=== PATIENT | male | born 1955 | race Caucasian/White ===

== ENCOUNTER 2023-04-07 13:59 | Inpatient (IN) | payer MEDICARE, BC, SELFPAY ==
--- NOTE | ~2023-04-07 | MR_ITS ---
EXAMINATION: MR brain/brain stem wo/w con DATE: 04/08/2023 11:48 INDICATION: Cerebral vascular accident. TECHNIQUE: Magnetic resonance imaging (MRI) of the brain and brainstem was performed without and with 15 mL MultiHance intravenous contrast. COMPARISON: Head CT 04/07/2023 FINDINGS: There is an acute infarct in right occipital lobe. Cortical decreased T2*weighted signal in tensity in the same distribution may be calcification or microhemorrhage. There are scattered areas o f nonspecific increased T2-weighted signal intensity in the cerebral white matter, which is within no rmal limits for the patient's age. There is no abnormal mass. The ventricles are normal in size. Ther e is mild mucosal thickening in the ethmoid sinuses. The orbits are normal. The mastoid air cells are normal. IMPRESSION: 1. Acute infarct in right occipital lobe. Abnormal cortical signal in this distribution may be calcif ication or microhemorrhage. Reviewed, dictated and finalized at location A. IMPRESSION: 1. Acute infarct in right occipital lobe. Abnormal cortical signal in this dist ribution may be calcification or microhemorrhage.
--- NOTE | ~2023-04-07 | CT_ITS ---
EXAMINATION: CTA brain carotid DATE: 04/07/2023 15:41 INDICATION: Ataxia. Left hemianopia. TECHNIQUE: Computed tomographic angiography (CTA) of the head was performed without and with 100 mL O mnipaque-350 intravenous contrast. CTA of the neck was performed with intravenous contrast. Automated exposure control and iterative reconstruction technique were employed. The dose-length product was 1 951.77 mGy-cm. Maximum intensity projection and volume rendered 3D-reconstructions were created by honey larson technologist on a separate workstation. COMPARISON: None. FINDINGS: HEAD CTA: There is an infarct in right occipital lobe. There is no intracranial hemorrhage or abnorma l mass lesion. The ventricles are normal in size. There is mild mucosal thickening in the ethmoid sin uses. The mastoid air cells are normal. The orbits are normal. Right vertebral artery is dominant. Th ere is no significant stenosis of basilar artery or the posterior cerebral arteries. There is no sign ificant stenosis of the intracranial internal carotid arteries or anterior or middle cerebral arterie s. Anterior communicating artery is normal. The posterior communicating arteries are normal. There is no aneurysm. NECK CTA: There are no pathologically enlarged lymph nodes. There is moderate stenosis of origin of l eft vertebral artery. There is plaque in the proximal internal carotid arteries. There is 0% stenosis of the proximal right internal carotid artery relative to normal distal artery lumen diameter (NASCE T criteria). There is 0% stenosis of the proximal left internal carotid artery relative to normal dis silver artery lumen diameter. There is severe cervical spondylosis. IMPRESSION: 1. Acute infarct in the right occipital lobe. 2. No aneurysm or significant intracranial arterial stenosis. 3. 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 4. 0% stenosis of the proximal internal carotid arteries relative to normal distal artery lumen diame ters (NASCET criteria). Reviewed, dictated and finalized at location A. IMPRESSION: 1. Acute infarct in the right occipital lobe. 2. No aneurysm or significant intracranial arterial stenosis. 3. 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 4. 0% stenosis of the proximal internal carotid arteries relative to normal dis silver artery lumen diameters (NASCET criteria).
[2023-04-07 14:01] VITALS: BP 141/113; PULSE 77; RESP 20; TEMP 36.6; O2SAT 97
[2023-04-07 15:13] VITALS: BP 157/92; PULSE 97; RESP 18; O2SAT 99
--- NOTE | 2023-04-07 15:13 | ECG_ITS ---
Measurements Intervals [place] Rate: 70 P: 31 VA: 215 QRS: 107 QRSD: 147 T: 41 QT: 458 QTc: 495 Interpretive Statements SINUS RHYTHM WITH FIRST DEGREE AV BLOCK RIGHT AXIS DEVIATION RIGHT BUNDLE BRANCH BLOCK BASELINE ARTIFACT- I, II, III, AVR, AVL, AVF, V1-V6 ABNORMAL ECG NO PREVIOUS ECG AVAILABLE FOR COMPARISON Electronically Signed On 04-07-2023 16:33:54 CDT by Rolan Strange D.O.
--- NOTE | 2023-04-07 15:15 | ED.NEUROSD ---
HPI - Neuro Symptoms/Deficit General Chief Complaint: Neuro Symptoms/Deficit Stated Complaint: vision problems started yesterday/off balance Time Seen by Provider: 04/07/23 14:54 History of Present Illness HPI Narrative: Patient is a 67-year-old male with a history of diabetes presenting with vision changes. Patient states that sometime around 5:30 PM last night he noticed that he could not see out of his periphery with his left eye. States that he noticed it while driving. He went to bed hoping that it would improve but it persisted today. He denies any other vision changes. No headache, numbness, weakness, speech changes, temporal pain, fevers, neck pain. Patient's is at bedside and states that he has seemed off balance for the last several months. States that he has had several falls. He denies further complaints at this time. Related Data Home Medications Medication Instructions Recorded Confirmed ascorbic acid (vitamin C) 1,000 mg 1 g PO DAILY 04/07/23 04/14/23 tablet cholecalciferol (vitamin D3) 50 2,000 unit PO DAILY 04/07/23 04/14/23 mcg (2,000 unit) tablet (Vitamin D3) escitalopram oxalate 20 mg tablet 20 mg PO DAILY 04/07/23 04/14/23 glipizide 5 mg tablet, extended 5 mg PO BID 04/07/23 04/14/23 release 24 hr oxmssezrshl-ehmkaqkxh-fdr C-Mn 500 1 cap PO DAILY 04/07/23 04/14/23 mg-400 mg capsule (Glucosamine Chondroitin Maximum Strength) metolazone 5 mg tablet 5 mg PO DAILY 04/07/23 04/14/23 metoprolol succinate 50 mg 50 mg PO DAILY 04/07/23 04/14/23 tablet,extended release 24 hr multivit with minerals-iron 18 1 tablet PO DAILY 04/07/23 04/14/23 mg-folic ac 400 mcg-vit K 25 mcg tablet (Adults Multivitamin) potassium chloride 20 mEq 20 meq PO DAILY 04/07/23 04/14/23 tablet,extended release sitagliptin phosphate 100 mg 100 mg PO DAILY 04/07/23 04/14/23 tablet (Januvia) dupilumab 300 mg/2 mL subcutaneous 300 mg subcut [id number] 04/08/23 04/15/23 syringe ([employer]) Allergies Allergy/AdvReac Type Severity Reaction Status Date / Time No Known Allergies Allergy Verified 04/07/23 18:06 Review of Systems Review of Systems: All systems reviewed & are unremarkable except as noted in HPI and below PMFSH Past Medical History Medical History Acute stroke due to ischemia Depression DM2 (diabetes mellitus, type 2) History of pneumonia History of pneumothorax Hyperlipidemia Hypertension Surgical History Surgical History H/O elbow surgery History of chest tube placement Family History Family History Other Hypertension Social History Social History (Updated 04/15/23 @ 06:56 by JIMENA Banuelos) Social History: The patient is and lives with his . He has 2 children. he is a former smoker. 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 He is a former smoker. His Albina is the durable power attorney recruiter for healthcare Code status full code Smoking packs per day: 1 Smoking cigarettes per day: 20.0 Smoking status: Former smoker Tobacco type: cigarettes and e-cigarettes/vaping Smoking end date: 09/20/09 Alcohol intake: current Substance use: never Substance use type: does not use Lack of Transportation: No Lack of Food: Never True Current Housing: I Have Housing Concerned About Future Housing: No Difficulty Paying Gas/Electric Bills: No Difficulty Paying for Meds: No Currently Unemployed: No Education: High School Diploma/GED Difficulty w/ Childcare or Family Care: No Spiritual care concerns: No Exam Narrative: GENERAL: Well-appearing, well-nourished, and in no acute distress. Pleasant and cooperative HEAD: Normocephalic, atraumatic. EYES: PERRLA and EOMI. ENT: Nares clear, no rhinorrhea or epistaxis. Mucous membranes moist. NECK: Suppl
[2023-04-07 15:28] LABS: Glucose Point of Care 200 mg/dl (65-105)
[2023-04-07 15:33] LABS: Estimated CRCL calculation 58 ml/min; Estimated Glomerular Filt Rate 51
[2023-04-07 15:48] LABS: Basophils Absolute Auto 0.1 K/mm3 (0.0-0.1); Basophils Percent Auto 0.9 % (0.2-1.2); Eosinophils Absolute Auto 0.4 K/mm3 (0-0.3); Eosinophils Percent Auto 3.7 % (0-4.4); Hemoglobin 13.8 g/dL (14.0-18.0); Immature Granulocyte Absolute 0.05 K/mm3 (0.00-0.031); Immature Granulocyte Percent A 0.5 % (0-0.5); Lymphocytes Absolute Auto 1.93 K/mm3 (0.9-3.2); Lymphocytes Percent Auto 18.6 % (18.3-44.2); Mean Corpuscular HGB Conc 33.7 g/dl (32-36); Mean Corpuscular Hemoglobin 30.5 pg (26-34); Mean Corpuscular Volume 90.7 fl (80-100); Mean Platelet Volume 10.6 fl (7.4-10.4); Monocytes Absolute Auto 0.7 K/mm3 (0.1-0.6); Monocytes Percent Auto 6.9 % (2.6-8.5); Neutrophils Absolute Auto 7.2 K/mm3 (1.3-6.7); Neutrophils Percent Auto 69.4 % (45.5-73.1); Platelet Count Result 280 k/mm3 (150-375); Red Blood Count 4.52 M/mm3 (4.6-6.20); Red Cell Distribution Width 13.7 % (11.5-14.5); White Blood Count 10.4 K/mm3 (4.5-10.0)
[2023-04-07 15:58] LABS: Partial Thromboplastin Time 31.4 SECONDS (22.3-36.8); Prothrombin Time 13.5 Seconds (11.1-14.7)
[2023-04-07 16:01] LABS: Alanine Aminotransferase 22 U/L (6-50); Alkaline Phosphatase 82 U/L (38-126); Anion Gap 5 mmol/L (8-16); Aspartate Amino Transferase 27 U/L (17-59); Bilirubin,Total 0.7 mg/dL (0.2-1.3); Blood Urea Nitrogen 25 mg/dL (9-20); Calcium 8.6 mg/dL (8.4-10.2); Carbon Dioxide 35 mmol/L (22-30); Chloride 96 mmol/L (98-107); Estimated CRCL calculation 67 ml/min; Estimated Glomerular Filt Rate 60; Glucose 186 mg/dL (65-110); Potassium 3.6 mmol/L (3.4-5.0); Sodium 136 mmol/L (137-145)
[2023-04-07] MEDS: SODIUM CHLORIDE 0.9% IV 1,000 ML 999 ML IV CONT (16:10)
--- NOTE | 2023-04-07 17:44 | ADMGEN ---
This patient, Constantino Adam, was admitted to Medical Room 241-01. Patient/family oriented to hospital policies and general routines including ID bracelet, bed and alarms, visiting hours, pain management, procedures, bathroom and other care routines, personal items, smoking policy, room service/diet, and visiting hours. Information on how to activate the Rapid Response Team has been discussed. Patient/Family are encouraged to report perceived risks to care and to ask questions if they do not understand what they are told or what they should do.
[2023-04-07 17:50] VITALS: BP 142/78; PULSE 75; RESP 16; TEMP 36.3; O2SAT 99
[2023-04-07 19:55] VITALS: BP 156/64; PULSE 74; RESP 16; TEMP 36.8; O2SAT 98
[2023-04-07 19:58] VITALS: BMI 38.2
[2023-04-07 20:00] VITALS: PULSE 77
--- NOTE | 2023-04-07 21:13 | PM.IMHP ---
H&P: HPI History of Present Illness Date/Time: 04/07/23 21:13 Chief Complaint: This is a 67-year-old male patient who came to the emergency room with complaints of visual problems. The patient does have a history of diabetes. Patient stated that he was out eating dinner with his last night around 530 and he noticed that he had some blurred vision to the periphery on the left eye. The patient stated that he has not had an eye appointment in 2 years. The patient went home and went to bed last night thinking that his vision was improved today. However it persisted. The patient continue to complain of right occipital headache. The patient denies any difficulty swallowing or any problems with ambulating. He has no focal weakness. Patient stated that he is been off balance for the last several months. He denies having any falls. No further complaints except for the headache to the right occipital area. His white count was 10.4. H&H is 13.8 and 41.0. Sodium is 136. Chloride 96. Anion gap is 5 BUN 25 creatinine 1.2. His blood sugar was 186. Head CTA was read as the following. Acute infarct in the right occipital lobe. 2. No aneurysm or significant intracranial arterial stenosis. 3. 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 4. 0% stenosis of the proximal internal carotid arteries relative to normal distal artery lumen diameters (NASCET criteria). The patient was given IV fluids in the emergency room. Neurology has been consulted. The patient is being admitted to observation status on the date of service 04/06/2023. Review of Systems Review of Systems: All systems reviewed & are unremarkable except as noted in HPI and below Constitutional: Constitutional: Reports as per HPI and Reports no additional constitutional complaints Eyes: Eyes: Reports as per HPI and Reports no additional eye complaints ENT: Reports system reviewed and no additional complaints, except as documented and Reports Normal hearing present Cardiovascular: Cardiovascular: Reports no additional cardiovascular complaints Respiratory: Respiratory: Reports no additional respiratory complaints and Reports no additional respiratory complaints Gastrointestinal: Gastrointestinal: Reports as per HPI and Reports no additional gastrointestinal complaints Musculoskeletal: Musculoskeletal: Reports no additional musculoskeletal complaints Integumentary/Breasts: Skin/Breast: Reports system reviewed and no additional complaints, except as docu and Reports as per HPI Neurologic: Reports system reviewed and no additional complaints, except as documented, Reports as per HPI and Reports Normal hearing present Psychiatric: Psychiatric: Reports no additional psychiatric complaints and Reports as per HPI Endocrine: Endocrine: Reports no additional endocrine complaints Hematologic/Lymphatic: Hematologic/Lymphatic: Reports no additional hematologic/lymphatic complaints Allergic/Immunologic: Allergic/Immunologic: Reports no additional allergic/immunologic complaints FOR[facility]LY [facility], [facility] Past Medical History Medical History (Updated 04/07/23 @ 23:51 by Carola Mcbride NP) Depression DM2 (diabetes mellitus, type 2) History of pneumonia History of pneumothorax Hyperlipidemia Hypertension Surgical History Surgical History (Updated 04/07/23 @ 23:41 by Carola Mcbride NP) H/O elbow surgery History of chest tube placement Family History Family History (Updated 04/07/23 @ 23:41 by Carola Mcbride NP) Other Hypertension Social History Social History (Updated 04/07/23 @ 23:43 by aCrola Mcbride NP) Social History: The patient is and lives with his . He has 2 children. he is a former smoker. 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 He is a former smoker. His is the durable power divorce attorney for healthcare Code status full code Smoking packs per day: 1 Smoking cigarettes per day: 20.0 Smoking status: Former smoker Tobacco typ
[2023-04-07] MEDS: ASPIRIN 81 MG ENTERIC TABLET PO (22:38)
[2023-04-07] MEDS: ACETAMINOPHEN 325 MG TABLET 650 MG PO (22:38)
[2023-04-08] VITALS (11 sets, daily range): BP systolic 144–154; BP diastolic 68–81; PULSE 67–74; RESP 16–20; TEMP 36.4–36.8; O2SAT 96–98
--- NOTE | 2023-04-08 | ECHO_ITS ---
Patient Info Name: Constantino Adam Age: 67 years : 1955 Gender: Male Ht: 69 in Wt: 259 lbs BSA: 2.44 m2 HR: 69 bpm BP: 145 / 68 mmHg Heart Rhythm: Sinus Rhythm Technical Quality: Fair Exam Date: 04/08/2023 9:12 AM Exam Location: [facility] Pulmonary Patient Status: Inpatient Admit Date: 04/07/2023 Staff Ordering Physician: Carola Mcbride NP Solid Waste Analyst: Andreia Wilkerson RDCS Attending Provider: Luis Castillo MD Referring Physician: Reed LYONS; Exam Type: CA echo dop bubble study w con Study Info Indications - cva Complete two-dimentional, color flow and Doppler transthoracic echocardiogram is performed with agitated saline and with contrast to opacify the left ventricle and to improve the delineation of the left ventricle endocardial borders. Contrast/Agitated Saline Contrast/Ag. Saline: Definity Amount: 3.00 ml Administered By: Andreia Wilkerson RDCS Existing IV Access: Yes IV Access Condition: patent with no signs of infiltration Contrast/Ag. Saline: Agitated Saline Amount: 20.00 ml Administered By: Concepcion Carter [facility] Existing IV Access: Yes IV Access Condition: patent with no signs of infiltration Summary 1. Left ventricular chamber dimension is normal. 2. Left ventricular systolic function is normal, estimated at 60-65%. 3. There is moderate asymmetric septal increased left ventricular wall thickness. 4. The left ventricular diastolic function is grade II diastolic dysfunction. 5. Left atrial chamber dimension is moderately enlarged. 6. The mitral valve annulus is moderately calcified. 7. The mitral valve has thickened leaflets. 8. There is mild tricuspid valve regurgitation. 9. Intact interatrial septum visualized by color flow and agitated saline imaging. Left Ventricle Left ventricular chamber dimension is normal. Left ventricular systolic function is normal, estimated at 60-65%. There is moderate asymmetric septal increased left ventricular wall thickness. The left ventricular diastolic function is grade II diastolic dysfunction. Right Ventricle Right ventricular chamber dimension is normal. Right ventricular systolic function is normal. Left Atria Left atrial chamber dimension is moderately enlarged. Right Atria Right atrial chamber dimension is normal. Atrial Septum Intact interatrial septum visualized by color flow and agitated saline imaging. Aortic Valve The aortic valve is trileaflet. There is mild aortic valve sclerosis. There is no aortic valve stenosis. There is trace aortic valve regurgitation. Pulmonic Valve The pulmonic valve is normal. There is no pulmonic valve stenosis. There is trace pulmonic regurgitation. Mitral Valve The mitral valve has thickened leaflets. There is no mitral valve stenosis. There is trace mitral valve regurgitation. The mitral valve annulus is moderately calcified. Tricuspid Valve The tricuspid valve leaflets are normal. There is no significant tricuspid valve stenosis. There is mild tricuspid valve regurgitation. No pulmonary hypertension, estimated pulmonary arterial systolic pressure is 22 mmHg. Pericardium/Pleural The pericardium appears normal. There is trivial pericardial effusion. Inferior Vena Cava Normal inferior vena cava with >50% collapse upon inspiration consistent with normal right atrial pressure, 10 mmHg. Aorta The aortic root size at the sinus of Valsalva is normal. There is mild aortic atherosclerosis. Left [place]
[2023-04-08 01:28] LABS: Glucose Point of Care 242 mg/dl (65-105)
[2023-04-08 05:37] LABS: Basophils Absolute Auto 0.1 K/mm3 (0.0-0.1); Basophils Percent Auto 0.7 % (0.2-1.2); Eosinophils Absolute Auto 0.3 K/mm3 (0-0.3); Eosinophils Percent Auto 2.4 % (0-4.4); Hematocrit 39.7 % (42.0-52.0); Hemoglobin 13.1 g/dL (14.0-18.0); Immature Granulocyte Absolute 0.07 K/mm3 (0.00-0.031); Immature Granulocyte Percent A 0.6 % (0-0.5); Lymphocytes Percent Auto 20.6 % (18.3-44.2); Mean Corpuscular Hemoglobin 30.3 pg (26-34); Mean Corpuscular Volume 91.7 fl (80-100); Mean Platelet Volume 10.7 fl (7.4-10.4); Monocytes Absolute Auto 0.9 K/mm3 (0.1-0.6); Neutrophils Absolute Auto 7.9 K/mm3 (1.3-6.7); Neutrophils Percent Auto 67.7 % (45.5-73.1); Platelet Count Result 268 k/mm3 (150-375); Red Blood Count 4.33 M/mm3 (4.6-6.20); Red Cell Distribution Width 13.4 % (11.5-14.5); White Blood Count 11.7 K/mm3 (4.5-10.0)
[2023-04-08 06:02] LABS: Alanine Aminotransferase 20 U/L (6-50); Albumin Level 3.7 g/dL (3.5-5.1); Alkaline Phosphatase 78 U/L (38-126); Anion Gap 5 mmol/L (8-16); Aspartate Amino Transferase 22 U/L (17-59); Bilirubin,Total 0.5 mg/dL (0.2-1.3); Blood Urea Nitrogen 22 mg/dL (9-20); Calcium 8.4 mg/dL (8.4-10.2); Carbon Dioxide 36 mmol/L (22-30); Chloride 94 mmol/L (98-107); Estimated CRCL calculation 58 ml/min; Estimated Glomerular Filt Rate 51; Glucose 221 mg/dL (65-110); Magnesium 1.8 mg/dL (1.6-2.3); Potassium 3.6 mmol/L (3.4-5.0); Sodium 135 mmol/L (137-145)
[2023-04-08] MEDS: ACETAMINOPHEN 325 MG TABLET 650 MG PO (06:11)
[2023-04-08 07:44] LABS: Free T4 Free Thyroxine Reflex 0.98 ng/dL (0.78-2.19)
[2023-04-08 08:41] LABS: Glucose Point of Care 240 mg/dl (65-105)
[2023-04-08] MEDS: glipiZIDE XL 5 MG TABCR PO ×2 (09:05→16:53)
[2023-04-08] MEDS: ASCORBIC ACID 500 MG TABLET 1000 MG PO (09:05)
[2023-04-08] MEDS: MULTIVITAMINS /C LUTEIN (CENTRUM SILVER) TABLET *BKC 1 TAB PO (09:05)
[2023-04-08] MEDS: ASPIRIN 81 MG ENTERIC TABLET PO (09:06)
[2023-04-08] MEDS: CHOLECALCIFEROL 1,000 UNITS TABLET 2000 UNITS PO (09:06)
[2023-04-08] MEDS: ESCITALOPRAM OXALATE 10 MG TABLET 20 MG PO (09:06)
[2023-04-08] MEDS: metOLazone 5 MG TABLET PO (09:06)
[2023-04-08] MEDS: METOPROLOL SUCCINATE EXT REL 50 MG TABCR PO (09:07)
[2023-04-08] MEDS: ATORVASTATIN 10 MG TABLET PO (09:07)
[2023-04-08] MEDS: POTASSIUM CHLORIDE 20 MEQ ER TABLET PO (09:08)
[2023-04-08] MEDS: INSULIN ASPART (*BKC) 100 UNITS/ML SUB-Q ×3 (09:09→21:27)
[2023-04-08] MEDS: PERFLUTREN LIPID MICROSPHERES 1.5 ML VIAL DILUTED TO 10 ML TOTAL VOLUME IV PUSH (09:45)
--- NOTE | 2023-04-08 10:43 | WPDNEURCNPN ---
Assessment and Plan Assessment and plan (1) CVA (cerebral vascular accident): Qualifiers: CVA mechanism: occlusion Precerebral and cerebral artery: posterior cerebral artery Laterality of affected vessel: bilateral Qualified Code(s): I63.533 - Cerebral infarction due to unspecified occlusion or stenosis of bilateral posterior cerebral arteries Code(s): I63.9 - Cerebral infarction, unspecified Status: Acute (2) DM2 (diabetes mellitus, type 2): Qualifiers: Diabetes mellitus complication status: with neurologic complications Code(s): E11.9 - Type 2 diabetes mellitus without complications Status: Acute (3) Hypertension: Code(s): I10 - Essential (primary) hypertension Status: Acute (4) Hyperlipidemia: Code(s): E78.5 - Hyperlipidemia, unspecified Status: Acute Plan 1. Right occipital infarct with left homonymous hemianopia documented by the CTA of the head and neck, will need the MRI of the brain to document any other incidental strokes O he gets discharged. 2. Diabetic neuropathy with mild gait dysfunction 3. Diabetes mellitus 4. Obesity plan increase the atorvastatin, obtain the MRI of the brain, wait for the results of the echocardiogram before further instruction. Consult date: 04/08/23 HPI: Constantino Adam is a 67 year old male admitted to the hospital through the emergency room for the complaints of inability to see out of the left eye and first-time noted when he was driving gave no history of headaches weakness of numbness of 1 side or other side no history of speech difficulties or any neck pain though he found himself to be somewhat of balance. He is not allergic to any medication initial evaluation in the emergency room documented left-sided hemianopia, vital signs were normal except blood pressure 157/92, CTA of the brain in the Emergency Room confirm the right occipital infarct but no other abnormalities. Routine blood studies documented a blood sugar of 186 and electrolytes fairly normal also rest of the blood studies were normal but also documented to have moderate stenosis of the origin of the left vertebral artery, he does have ongoing history of depression and as mentioned before type 2 diabetes mellitus, but no history of alcohol consumption though is a former smoker and his medications include atorvastatin 10 mg daily he cycle of prime 20 mg daily glipizide 5 mg twice a day metoprolol 50 mg daily C tag Taras 100 mg daily Review of Systems Review of Systems: All systems reviewed & are unremarkable except as noted in HPI and below PMFSH Past Medical History Medical History (Updated 04/08/23 @ 10:56 by Alvarado Garcia MD) Depression DM2 (diabetes mellitus, type 2) History of pneumonia History of pneumothorax Hyperlipidemia Hypertension Surgical History Surgical History (Updated 04/07/23 @ 23:41 by Carola Mcbride NP) H/O elbow surgery History of chest tube placement Family History Family History (Updated 04/07/23 @ 23:41 by Carola Mcbride NP) Other Hypertension Social History Social History (Updated 04/07/23 @ 23:43 by Carola Mcbride NP) Social History: The patient is and lives with his . He has 2 children. he is a former smoker. 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 He is a former smoker. His is the durable power commonwealth attorney for healthcare Code status full code Smoking packs per day: 1 Smoking cigarettes per day: 20.0 Smoking status: Former smoker Tobacco type: cigarettes and e-cigarettes/vaping Smoking end date: 09/20/09 Alcohol intake: never Substance use: never Lack of Transportation: No Lack of Food: Never True Current Housing: I Have Housing Concerned About Future Housing: No Difficulty Paying Gas/Electric Bills: No Difficulty Paying for Meds: No Currently Unemployed: No Education: Trade/Vocational Certificate Difficulty w/ Childcare or F
[2023-04-08 12:43] LABS: Glucose Point of Care 299 mg/dl (65-105)
--- NOTE | 2023-04-08 13:45 | PHAR ---
HOME MED VERIFIED BY PHARMACY DUPIXENT (DUPILUMAB) 300MG/2ML SYRINGE - 1 SYRINGE
--- NOTE | 2023-04-08 14:07 | WPDPN ---
Progress Note: A&P Assessment and Plan (1) CVA (cerebral vascular accident): Qualifiers: CVA mechanism: occlusion Precerebral and cerebral artery: posterior cerebral artery Laterality of affected vessel: bilateral Qualified Code(s): I63.533 - Cerebral infarction due to unspecified occlusion or stenosis of bilateral posterior cerebral arteries Code(s): I63.9 - Cerebral infarction, unspecified Status: Acute Assessment and Plan: 04/08/2023 interval history: patient continue to c/o visual problem and MRI of the brain does show acute infarct in right occipital lobe. Abnormal cortical signal in this distribution may be calcification or microhemorrhage. patient is on Aspirin and will increase his lipitor to 40mg q.day. cardiac echo is pending, patient be seen by Neurology and further recommendation to follow, will have a PT OT evaluate the patient, patient had uncontrolled diabetes will have buggy loader talk to the patient and further recommendation to follow. (2) Depression: Code(s): F32.A - Depression, unspecified Status: Acute Assessment and Plan: Will continue home regimen and monitor (3) DM2 (diabetes mellitus, type 2): Qualifiers: Diabetes mellitus complication status: with neurologic complications Code(s): E11.9 - Type 2 diabetes mellitus without complications Status: Acute Assessment and Plan: Patient with uncontrolled diabetes with hemoglobin A1c of 11 will have a buggy loader discussed with the patient (4) Hypertension: Code(s): I10 - Essential (primary) hypertension Status: Acute Assessment and Plan: Will continue home regimen and monitor (5) Hyperlipidemia: Code(s): E78.5 - Hyperlipidemia, unspecified Status: Acute Plan Will increase patient Lipitor from 10 mg q.day to 40 mg q.day. Subjective Date/time seen: 04/08/23 14:07 Interval history: This is a 67-year-old male patient who came to the emergency room with complaints of visual problems.? The patient does have a history of diabetes.? Patient stated that he was out eating dinner with his last night around 530 and he noticed that he had some blurred vision to the periphery on the left eye.? The patient stated that he has not had an eye appointment in 2 years.? The patient went home and went to bed last night thinking that his vision was improved today.? However it persisted.? The patient continue to complain of right occipital headache.? The patient denies any difficulty swallowing or any problems with ambulating.? He has no focal weakness.? Patient stated that he is been off balance for the last several months.? He denies having any falls.? No further complaints except for the headache to the right occipital area.? His white count was 10.4.? H&H is 13.8 and 41.0.? Sodium is 136.? Chloride 96.? Anion gap is 5 BUN 25 creatinine 1.2.? His blood sugar was 186.? Head CTA was read as the following. Acute infarct in the right occipital lobe. 2. No aneurysm or significant intracranial arterial stenosis. 3. 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 4. 0% stenosis of the proximal internal carotid arteries relative to normal distal artery lumen diameters (NASCET criteria). The patient was given IV fluids in the emergency room.? Neurology has been consulted.?? 04/08/2023 interval history: patient continue to c/o visual problem and MRI of the brain does show acute infarct in right occipital lobe. Abnormal cortical signal in this distribution may be calcification or microhemorrhage. patient is on Aspirin and will increase his lipitor to 40mg q.day. cardiac echo is pending, patient be seen by Neurology and further recommendation to follow, will have a PT OT evaluate the patient, patient had uncontrolled diabetes will have buggy loader talk to the patient and further recommendation to follow. Review of Systems Review of Systems: All systems reviewed
[2023-04-08] MEDS: DOCUSATE SODIUM 100 MG CAPSULE PO (17:20)
[2023-04-08] MEDS: polyethylene glycoL 3350 17 GM POWD.PACK PO (17:20)
[2023-04-08 17:32] LABS: Glucose Point of Care 181 mg/dl (65-105)
[2023-04-08 20:38] LABS: Glucose Point of Care 256 mg/dl (65-105)
[2023-04-09] VITALS (9 sets, daily range): BP systolic 140–152; BP diastolic 64–67; PULSE 61–80; RESP 20; TEMP 36.4–36.8; O2SAT 95–97; BMI 38.2
[2023-04-09 00:01] LABS: Total Triiodothyronine (T3) 1.06 NG/ML (0.97-1.69)
[2023-04-09 09:11] LABS: Glucose Point of Care 207 mg/dl (65-105)
[2023-04-09] MEDS: ASCORBIC ACID 500 MG TABLET 1000 MG PO (09:31)
[2023-04-09] MEDS: ASPIRIN 81 MG ENTERIC TABLET PO (09:32)
[2023-04-09] MEDS: ESCITALOPRAM OXALATE 10 MG TABLET 20 MG PO (09:32)
[2023-04-09] MEDS: DOCUSATE SODIUM 100 MG CAPSULE PO ×2 (09:32→22:04)
[2023-04-09] MEDS: CHOLECALCIFEROL 1,000 UNITS TABLET 2000 UNITS PO (09:32)
[2023-04-09] MEDS: glipiZIDE XL 5 MG TABCR PO ×2 (09:33→17:19)
[2023-04-09] MEDS: METOPROLOL SUCCINATE EXT REL 50 MG TABCR PO (09:33)
[2023-04-09] MEDS: metOLazone 5 MG TABLET PO (09:33)
[2023-04-09] MEDS: MULTIVITAMINS /C LUTEIN (CENTRUM SILVER) TABLET *BKC 1 TAB PO (09:34)
[2023-04-09] MEDS: POTASSIUM CHLORIDE 20 MEQ ER TABLET PO (09:34)
[2023-04-09] MEDS: INSULIN ASPART (*BKC) 100 UNITS/ML SUB-Q ×4 (09:35→22:04)
--- NOTE | 2023-04-09 11:51 | WPDNEUROPN ---
Progress Note: A&P Assessment and Plan (1) CVA (cerebral vascular accident): Qualifiers: CVA mechanism: occlusion Precerebral and cerebral artery: posterior cerebral artery Laterality of affected vessel: bilateral Qualified Code(s): I63.533 - Cerebral infarction due to unspecified occlusion or stenosis of bilateral posterior cerebral arteries Code(s): I63.9 - Cerebral infarction, unspecified Status: Acute (2) Hypertension: Code(s): I10 - Essential (primary) hypertension Status: Acute (3) Hyperlipidemia: Code(s): E78.5 - Hyperlipidemia, unspecified Status: Acute Plan considering her significantly abnormal echocardiogram we will continue Plavix 75 mg daily for 3 months in addition her carotid study is borderline as well should follow with the vascular surgeon. Subjective Date/time seen: 04/09/23 11:51 Objective Data Vital Signs Vital Signs: Vital Signs - 24 hr 04/08/23 12:00 04/08/23 14:00 04/08/23 16:00 Temperature 36.8 C Pulse Rate 72 67 68 Respiratory Rate 16 Blood Pressure 144/81 H Pulse Oximetry 97 Oxygen Delivery 04/08/23 19:13 04/08/23 20:00 04/08/23 20:00 Temperature 36.6 C Pulse Rate 71 68 Respiratory Rate 20 Blood Pressure 154/73 H Pulse Oximetry 98 Oxygen Delivery Room Air 04/09/23 00:00 04/09/23 09:33 04/09/23 09:45 Temperature Pulse Rate 80 70 Respiratory Rate Blood Pressure Pulse Oximetry Oxygen Delivery Room Air 04/09/23 10:26 Temperature Pulse Rate Respiratory Rate Blood Pressure Pulse Oximetry 97 Oxygen Delivery Room Air Intake/Output Intake/Output: Intake & Output 04/06/23 04/07/23 04/08/23 04/09/23 23:59 23:59 23:59 23:59 Intake Total 1000 1842 530 Balance 1000 1842 530 Meds/Results Medications: Active Medications Generic Name Dose Route Start Last Admin Trade Name Freq PRN Reason Stop Dose Admin Acetaminophen 650 mg 04/07/23 21:57 04/08/23 06:11 Acetaminophen 325 Mg Tablet PO 650 mg Q4H PRN Administration Headache Ascorbic Acid 1,000 mg 04/08/23 09:00 04/09/23 09:31 Ascorbic Acid 500 Mg Tablet PO 1,000 mg DAILY JERAMY Administration Aspirin 81 mg 04/07/23 22:00 04/09/23 09:32 Aspirin 81 Mg Enteric Tablet PO 81 mg QAM JERAMY Administration Atorvastatin Calcium 40 mg 04/09/23 21:00 Atorvastatin 40 Mg Tablet PO HS [facility] Dextrose 12.5 gm 04/07/23 23:50 Dextrose 50% 25 Gm/50 Ml Syringe IV PUSH PRN PRN Hypoglycemia Protocol Docusate Sodium 100 mg 04/08/23 21:00 04/09/23 09:32 Docusate Sodium 100 Mg Capsule PO 100 mg Q12HR JERAMY Administration Escitalopram Oxalate 20 mg 04/08/23 09:00 04/09/23 09:32 Escitalopram Oxalate 10 Mg Tablet PO 20 mg DAILY JERAMY Administration Glipizide 5 mg 04/08/23 09:00 04/09/23 09:33 Glipizide Xl 5 Mg Tabcr PO 5 mg BID JERAMY Administration Glucagon 1 mg 04/07/23 23:50 Glucagon For Inj 1 Mg Vial IM PRN PRN Hypoglycemia Protocol Glucose 15 gm 04/07/23 23:50 Glucose Oral Gel 15 Gm Of Glucse In 37.5 Gm Tube PO PRN PRN Hypoglycemia Protocol Dextrose 1,000 mls @ 100 mls/hr 04/07/23 23:50 Dextrose 5% 1,000 Ml IVPB PRN PRN Hypoglycemia Protocol Insulin Aspart 2 - 5 units 04/08/23 08:00 04/09/23 09:35 Insulin Aspart (*Bkc) 100 Units/Ml SUB-Q 2 units TIDWM JERAMY Administration Protocol Insulin Aspart 1 - 2 units 04/08/23 21:00 04/08/23 21:27 Insulin Aspart (*Bkc) 100 Units/Ml SUB-Q 1 units HS JERAMY Administration Protocol Metolazone 5 mg 04/08/23 09:00 04/09/23 09:33 Metolazone 5 Mg Tablet PO 5 mg DAILY JERAMY Administration Metoprolol Succinate 50 mg 04/08/23 09:00 04/09/23 09:33 Metoprolol Succinate Ext Rel 50 Mg Tabcr PO 50 mg DAILY JERAMY Administration Multivitamins/Minerals 1 tab 04/08/23 09:00 04/09/23 09:34 Multivita
--- NOTE | 2023-04-09 12:30 | WPDPN ---
Progress Note: A&P Assessment and Plan (1) CVA (cerebral vascular accident): Qualifiers: CVA mechanism: occlusion Precerebral and cerebral artery: posterior cerebral artery Laterality of affected vessel: bilateral Qualified Code(s): I63.533 - Cerebral infarction due to unspecified occlusion or stenosis of bilateral posterior cerebral arteries Code(s): I63.9 - Cerebral infarction, unspecified Status: Acute Assessment and Plan: 04/09/2023 interval history: patient continue to c/o visual problem and MRI of the brain does show acute infarct in right occipital lobe. Abnormal cortical signal in this distribution may be calcification or microhemorrhage. patient is on Aspirin and increased his lipitor to 40mg q.day. cardiac echo showed preserver LV function and grade II diastolic dysfunction, otherwise it normal, patient is seen by Neurology and further recommendation to follow, will have a PT OT evaluate the patient, however patient is unsteady on his feet and unable to stand without help, will benefit going to rehab, patient had uncontrolled diabetes will have rn diabetes educator talk to the patient and further recommendation to follow. (2) Depression: Code(s): F32.A - Depression, unspecified Status: Acute Assessment and Plan: Will continue home regimen and monitor (3) DM2 (diabetes mellitus, type 2): Qualifiers: Diabetes mellitus complication status: with neurologic complications Code(s): E11.9 - Type 2 diabetes mellitus without complications Status: Acute Assessment and Plan: Patient with uncontrolled diabetes with hemoglobin A1c of 11 will have a rn diabetes educator discussed with the patient (4) Hypertension: Code(s): I10 - Essential (primary) hypertension Status: Acute Assessment and Plan: Will continue home regimen and monitor (5) Hyperlipidemia: Code(s): E78.5 - Hyperlipidemia, unspecified Status: Acute Plan Will increase patient Lipitor from 10 mg q.day to 40 mg q.day. Subjective Date/time seen: 04/09/23 12:30 Interval history: This is a 67-year-old male patient who came to the emergency room with complaints of visual problems.? The patient does have a history of diabetes.? Patient stated that he was out eating dinner with his last night around 530 and he noticed that he had some blurred vision to the periphery on the left eye.? The patient stated that he has not had an eye appointment in 2 years.? The patient went home and went to bed last night thinking that his vision was improved today.? However it persisted.? The patient continue to complain of right occipital headache.? The patient denies any difficulty swallowing or any problems with ambulating.? He has no focal weakness.? Patient stated that he is been off balance for the last several months.? He denies having any falls.? No further complaints except for the headache to the right occipital area.? His white count was 10.4.? H&H is 13.8 and 41.0.? Sodium is 136.? Chloride 96.? Anion gap is 5 BUN 25 creatinine 1.2.? His blood sugar was 186.? Head CTA was read as the following. Acute infarct in the right occipital lobe. 2. No aneurysm or significant intracranial arterial stenosis. 3. 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 4. 0% stenosis of the proximal internal carotid arteries relative to normal distal artery lumen diameters (NASCET criteria). The patient was given IV fluids in the emergency room.? Neurology has been consulted.?? 04/09/2023 interval history: patient continue to c/o visual problem and MRI of the brain does show acute infarct in right occipital lobe. Abnormal cortical signal in this distribution may be calcification or microhemorrhage. patient is on Aspirin and increased his lipitor to 40mg q.day. cardiac echo showed preserver LV function and grade II diastolic dysfunction, otherwise it normal, patient is seen by Neurology and further recommend
[2023-04-09 12:35] LABS: Glucose Point of Care 211 mg/dl (65-105)
--- NOTE | 2023-04-09 12:59 | PCPTNOTE ---
On 04/09/23, the student, VANNA Stacy, provided care and completed [facility] documentation on this patient. I have reviewed the student's documentation and agree with the findings.
[2023-04-09 17:21] LABS: Glucose Point of Care 259 mg/dl (65-105)
[2023-04-09 20:41] LABS: Glucose Point of Care 304 mg/dl (65-105)
[2023-04-09] MEDS: ATORVASTATIN 40 MG TABLET PO (22:04)
[2023-04-10] VITALS (10 sets, daily range): BP systolic 135–148; BP diastolic 61–70; PULSE 58–73; RESP 16–18; TEMP 36.4–36.7; O2SAT 96–97
[2023-04-10 08:47] LABS: Glucose Point of Care 176 mg/dl (65-105)
[2023-04-10] MEDS: ESCITALOPRAM OXALATE 10 MG TABLET 20 MG PO (09:10)
[2023-04-10] MEDS: metOLazone 5 MG TABLET PO (09:11)
[2023-04-10] MEDS: METOPROLOL SUCCINATE EXT REL 50 MG TABCR PO (09:11)
[2023-04-10] MEDS: DOCUSATE SODIUM 100 MG CAPSULE PO ×2 (09:12→22:42)
[2023-04-10] MEDS: CHOLECALCIFEROL 1,000 UNITS TABLET 2000 UNITS PO (09:12)
[2023-04-10] MEDS: glipiZIDE XL 5 MG TABCR PO ×2 (09:12→17:56)
[2023-04-10] MEDS: MULTIVITAMINS /C LUTEIN (CENTRUM SILVER) TABLET *BKC 1 TAB PO (09:12)
[2023-04-10] MEDS: ASPIRIN 81 MG ENTERIC TABLET PO (09:13)
[2023-04-10] MEDS: ASCORBIC ACID 500 MG TABLET 1000 MG PO (09:13)
[2023-04-10 12:20] LABS: Glucose Point of Care 198 mg/dl (65-105)
[2023-04-10 13:17] LABS: Hematocrit 41.2 % (42.0-52.0); Hemoglobin 13.9 g/dL (14.0-18.0); Mean Corpuscular HGB Conc 33.7 g/dl (32-36); Mean Corpuscular Hemoglobin 30.8 pg (26-34); Mean Corpuscular Volume 91.4 fl (80-100); Mean Platelet Volume 10.6 fl (7.4-10.4); Platelet Count Result 284 k/mm3 (150-375); Red Blood Count 4.51 M/mm3 (4.6-6.20); Red Cell Distribution Width 13.6 % (11.5-14.5); White Blood Count 11.9 K/mm3 (4.5-10.0)
[2023-04-10 13:32] LABS: Anion Gap 9 mmol/L (8-16); Blood Urea Nitrogen 34 mg/dL (9-20); Calcium 9.4 mg/dL (8.4-10.2); Carbon Dioxide 38 mmol/L (22-30); Chloride 89 mmol/L (98-107); Estimated CRCL calculation 54 ml/min; Estimated Glomerular Filt Rate 47; Glucose 188 mg/dL (65-110); Potassium 3.3 mmol/L (3.4-5.0); Sodium 136 mmol/L (137-145)
--- NOTE | 2023-04-10 14:10 | WPDPN ---
Progress Note: A&P Assessment and Plan (1) CVA (cerebral vascular accident): Qualifiers: CVA mechanism: occlusion Precerebral and cerebral artery: posterior cerebral artery Laterality of affected vessel: bilateral Qualified Code(s): I63.533 - Cerebral infarction due to unspecified occlusion or stenosis of bilateral posterior cerebral arteries Code(s): I63.9 - Cerebral infarction, unspecified Status: Acute Assessment and Plan: 04/10/2023 interval history: patient continue to c/o visual problem and MRI of the brain does show acute infarct in right occipital lobe. Abnormal cortical signal in this distribution may be calcification or microhemorrhage. patient is on Aspirin and increased his lipitor to 40mg q.day.also now patient is on plavix, cardiac echo showed preserver LV function and grade II diastolic dysfunction, otherwise it normal, patient is seen by Neurology and further recommendation to follow, will have a PT OT evaluate the patient, however patient is unsteady on his feet and unable to stand without help, will benefit going to rehab, patient has uncontrolled diabetes will have staff educator talk to the patient and further recommendation to follow. patient is waiting for placement. (2) Depression: Code(s): F32.A - Depression, unspecified Status: Acute Assessment and Plan: Will continue home regimen and monitor (3) DM2 (diabetes mellitus, type 2): Qualifiers: Diabetes mellitus complication status: with neurologic complications Code(s): E11.9 - Type 2 diabetes mellitus without complications Status: Acute Assessment and Plan: Patient with uncontrolled diabetes with hemoglobin A1c of 11 will have a staff educator discussed with the patient (4) Hypertension: Code(s): I10 - Essential (primary) hypertension Status: Acute Assessment and Plan: Will continue home regimen and monitor (5) Hyperlipidemia: Code(s): E78.5 - Hyperlipidemia, unspecified Status: Acute Plan Will increase patient Lipitor from 10 mg q.day to 40 mg q.day. Subjective Date/time seen: 04/10/23 14:10 Interval history: This is a 67-year-old male patient who came to the emergency room with complaints of visual problems.? The patient does have a history of diabetes.? Patient stated that he was out eating dinner with his last night around 530 and he noticed that he had some blurred vision to the periphery on the left eye.? The patient stated that he has not had an eye appointment in 2 years.? The patient went home and went to bed last night thinking that his vision was improved today.? However it persisted.? The patient continue to complain of right occipital headache.? The patient denies any difficulty swallowing or any problems with ambulating.? He has no focal weakness.? Patient stated that he is been off balance for the last several months.? He denies having any falls.? No further complaints except for the headache to the right occipital area.? His white count was 10.4.? H&H is 13.8 and 41.0.? Sodium is 136.? Chloride 96.? Anion gap is 5 BUN 25 creatinine 1.2.? His blood sugar was 186.? Head CTA was read as the following. Acute infarct in the right occipital lobe. 2. No aneurysm or significant intracranial arterial stenosis. 3. 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 4. 0% stenosis of the proximal internal carotid arteries relative to normal distal artery lumen diameters (NASCET criteria). The patient was given IV fluids in the emergency room.? Neurology has been consulted.?? 04/10/2023 interval history: patient continue to c/o visual problem and MRI of the brain does show acute infarct in right occipital lobe. Abnormal cortical signal in this distribution may be calcification or microhemorrhage. patient is on Aspirin and increased his lipitor to 40mg q.day.also now patient is on plavix, cardiac echo showed preserver LV function and grad
[2023-04-10] MEDS: POTASSIUM CHLORIDE 20 MEQ ER TABLET PO (14:59)
[2023-04-10 17:31] LABS: Glucose Point of Care 230 mg/dl (65-105)
[2023-04-10] MEDS: INSULIN ASPART (*BKC) 100 UNITS/ML SUB-Q ×2 (17:56→22:42)
[2023-04-10] MEDS: ATORVASTATIN 40 MG TABLET PO (22:42)
[2023-04-10 23:00] LABS: Glucose Point of Care 223 mg/dl (65-105)
[2023-04-11] VITALS (10 sets, daily range): BP systolic 148–159; BP diastolic 70–71; PULSE 60–71; RESP 14–20; TEMP 36.4–36.5; O2SAT 98–99
[2023-04-11 05:17] LABS: Hematocrit 40.8 % (42.0-52.0); Hemoglobin 13.8 g/dL (14.0-18.0); Mean Corpuscular HGB Conc 33.8 g/dl (32-36); Mean Corpuscular Hemoglobin 30.6 pg (26-34); Mean Corpuscular Volume 90.5 fl (80-100); Mean Platelet Volume 10.7 fl (7.4-10.4); Platelet Count Result 278 k/mm3 (150-375); Red Blood Count 4.51 M/mm3 (4.6-6.20); Red Cell Distribution Width 13.5 % (11.5-14.5); White Blood Count 11.5 K/mm3 (4.5-10.0)
[2023-04-11 05:26] LABS: Anion Gap 9 mmol/L (8-16); Blood Urea Nitrogen 36 mg/dL (9-20); Calcium 9.1 mg/dL (8.4-10.2); Carbon Dioxide 34 mmol/L (22-30); Chloride 91 mmol/L (98-107); Estimated CRCL calculation 54 ml/min; Estimated Glomerular Filt Rate 47; Glucose 171 mg/dL (65-110); Magnesium 1.9 mg/dL (1.6-2.3); Potassium 2.9 mmol/L (3.4-5.0); Sodium 134 mmol/L (137-145)
[2023-04-11] MEDS: ASCORBIC ACID 500 MG TABLET 1000 MG PO (08:24)
[2023-04-11] MEDS: DOCUSATE SODIUM 100 MG CAPSULE PO ×2 (08:25→21:10)
[2023-04-11] MEDS: POTASSIUM CHLORIDE 20 MEQ ER TABLET PO (08:25)
[2023-04-11] MEDS: CHOLECALCIFEROL 1,000 UNITS TABLET 2000 UNITS PO (08:25)
[2023-04-11] MEDS: metOLazone 5 MG TABLET PO (08:25)
[2023-04-11] MEDS: MULTIVITAMINS /C LUTEIN (CENTRUM SILVER) TABLET *BKC 1 TAB PO (08:25)
[2023-04-11] MEDS: METOPROLOL SUCCINATE EXT REL 50 MG TABCR PO (08:26)
[2023-04-11] MEDS: ESCITALOPRAM OXALATE 10 MG TABLET 20 MG PO (08:26)
[2023-04-11] MEDS: ASPIRIN 81 MG ENTERIC TABLET PO (08:26)
[2023-04-11] MEDS: glipiZIDE XL 5 MG TABCR PO ×2 (08:27→17:21)
[2023-04-11 08:33] LABS: Glucose Point of Care 172 mg/dl (65-105)
[2023-04-11] MEDS: POTASSIUM CHLORIDE INJ 40 MEQ in SODIUM CHLORIDE 0.9% IV 500 ML 130 MEQ IVPB (10:03)
--- NOTE | 2023-04-11 10:33 | WPDPN ---
Progress Note: A&P Assessment and Plan (1) CVA (cerebral vascular accident): Qualifiers: CVA mechanism: occlusion Laterality of affected vessel: bilateral Precerebral and cerebral artery: posterior cerebral artery Qualified Code(s): I63.533 - Cerebral infarction due to unspecified occlusion or stenosis of bilateral posterior cerebral arteries Code(s): I63.9 - Cerebral infarction, unspecified Status: Acute Assessment and Plan: interval history: patient continue to c/o visual problem and MRI of the brain does show acute infarct in right occipital lobe. Abnormal cortical signal in this distribution may be calcification or microhemorrhage. patient is on Aspirin and increased his lipitor to 40mg q.day.also now patient is on plavix, cardiac echo showed preserver LV function and grade II diastolic dysfunction, otherwise it normal, patient is seen by Neurology and further recommendation to follow, will have a PT OT evaluate the patient, however patient is unsteady on his feet and unable to stand without help, will benefit going to rehab,possibly discharge to swing bed at [facility] tomorrow, patient has uncontrolled diabetes will have supervisor boat outfitting talk to the patient and further recommendation to follow. patient is waiting for placement. (2) Depression: Code(s): F32.A - Depression, unspecified Status: Acute Assessment and Plan: Will continue home regimen and monitor (3) DM2 (diabetes mellitus, type 2): Qualifiers: Diabetes mellitus complication status: with neurologic complications Code(s): E11.9 - Type 2 diabetes mellitus without complications Status: Acute Assessment and Plan: Patient with uncontrolled diabetes with hemoglobin A1c of 11 will have a supervisor boat outfitting discussed with the patient (4) Hypertension: Code(s): I10 - Essential (primary) hypertension Status: Acute Assessment and Plan: Will continue home regimen and monitor (5) Hyperlipidemia: Code(s): E78.5 - Hyperlipidemia, unspecified Status: Acute Plan Will increase patient Lipitor from 10 mg q.day to 40 mg q.day. Subjective Date/time seen: 04/11/23 10:33 Interval history: This is a 67-year-old male patient who came to the emergency room with complaints of visual problems.? The patient does have a history of diabetes.? Patient stated that he was out eating dinner with his last night around 530 and he noticed that he had some blurred vision to the periphery on the left eye.? The patient stated that he has not had an eye appointment in 2 years.? The patient went home and went to bed last night thinking that his vision was improved today.? However it persisted.? The patient continue to complain of right occipital headache.? The patient denies any difficulty swallowing or any problems with ambulating.? He has no focal weakness.? Patient stated that he is been off balance for the last several months.? He denies having any falls.? No further complaints except for the headache to the right occipital area.? His white count was 10.4.? H&H is 13.8 and 41.0.? Sodium is 136.? Chloride 96.? Anion gap is 5 BUN 25 creatinine 1.2.? His blood sugar was 186.? Head CTA was read as the following. Acute infarct in the right occipital lobe. 2. No aneurysm or significant intracranial arterial stenosis. 3. 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 4. 0% stenosis of the proximal internal carotid arteries relative to normal distal artery lumen diameters (NASCET criteria). The patient was given IV fluids in the emergency room.? Neurology has been consulted.?? interval history: patient continue to c/o visual problem and MRI of the brain does show acute infarct in right occipital lobe. Abnormal cortical signal in this distribution may be calcification or microhemorrhage. patient is on Aspirin and increased his lipitor to 40mg q.day.also now patient is on plavix,
[2023-04-11] MEDS: INSULIN ASPART (*BKC) 100 UNITS/ML SUB-Q (12:10)
[2023-04-11] MEDS: POTASSIUM CHLORIDE 20 MEQ ER TABLET 40 MEQ PO (12:10)
[2023-04-11 12:11] LABS: Glucose Point of Care 207 mg/dl (65-105)
[2023-04-11 16:50] LABS: Anion Gap 10 mmol/L (8-16); Blood Urea Nitrogen 36 mg/dL (9-20); Calcium 8.9 mg/dL (8.4-10.2); Carbon Dioxide 31 mmol/L (22-30); Chloride 92 mmol/L (98-107); Estimated CRCL calculation 58 ml/min; Estimated Glomerular Filt Rate 51; Glucose 176 mg/dL (65-110); Potassium 3.2 mmol/L (3.4-5.0); Sodium 133 mmol/L (137-145)
[2023-04-11 17:14] LABS: Glucose Point of Care 169 mg/dl (65-105)
[2023-04-11] MEDS: ATORVASTATIN 40 MG TABLET PO (21:10)
[2023-04-11 21:21] LABS: Glucose Point of Care 216 mg/dl (65-105)
[2023-04-12] VITALS (10 sets, daily range): BP systolic 140–168; BP diastolic 69–77; PULSE 61–76; RESP 14–18; TEMP 36.6–36.8; O2SAT 96–99
[2023-04-12 05:24] LABS: Hematocrit 40.4 % (42.0-52.0); Hemoglobin 13.7 g/dL (14.0-18.0); Mean Corpuscular HGB Conc 33.9 g/dl (32-36); Mean Corpuscular Hemoglobin 30.6 pg (26-34); Mean Corpuscular Volume 90.4 fl (80-100); Mean Platelet Volume 10.7 fl (7.4-10.4); Platelet Count Result 276 k/mm3 (150-375); Red Blood Count 4.47 M/mm3 (4.6-6.20); Red Cell Distribution Width 13.7 % (11.5-14.5); White Blood Count 10.4 K/mm3 (4.5-10.0)
[2023-04-12 05:47] LABS: Anion Gap 11 mmol/L (8-16); Blood Urea Nitrogen 37 mg/dL (9-20); Calcium 8.7 mg/dL (8.4-10.2); Carbon Dioxide 30 mmol/L (22-30); Chloride 93 mmol/L (98-107); Estimated CRCL calculation 62 ml/min; Estimated Glomerular Filt Rate 55; Glucose 151 mg/dL (65-110); Magnesium 1.9 mg/dL (1.6-2.3); Potassium 2.9 mmol/L (3.4-5.0); Sodium 134 mmol/L (137-145)
--- NOTE | 2023-04-12 08:16 | PCPTNOTE ---
Attempted to see patient for PT, however patient just got his breakfast and wanted to eat breakfast.
[2023-04-12 08:20] LABS: Glucose Point of Care 181 mg/dl (65-105)
[2023-04-12] MEDS: METOPROLOL SUCCINATE EXT REL 50 MG TABCR PO (08:52)
[2023-04-12] MEDS: glipiZIDE XL 5 MG TABCR PO ×2 (08:53→17:07)
[2023-04-12] MEDS: MULTIVITAMINS /C LUTEIN (CENTRUM SILVER) TABLET *BKC 1 TAB PO (08:53)
[2023-04-12] MEDS: DOCUSATE SODIUM 100 MG CAPSULE PO ×2 (08:53→20:31)
[2023-04-12] MEDS: metOLazone 5 MG TABLET PO (08:53)
[2023-04-12] MEDS: POTASSIUM CHLORIDE 20 MEQ ER TABLET PO (08:53)
[2023-04-12] MEDS: ASPIRIN 81 MG ENTERIC TABLET PO (08:53)
[2023-04-12] MEDS: ASCORBIC ACID 500 MG TABLET 1000 MG PO (08:53)
[2023-04-12] MEDS: CHOLECALCIFEROL 1,000 UNITS TABLET 2000 UNITS PO (08:53)
[2023-04-12] MEDS: ESCITALOPRAM OXALATE 10 MG TABLET 20 MG PO (08:53)
[2023-04-12 12:06] LABS: Glucose Point of Care 170 mg/dl (65-105)
[2023-04-12] MEDS: POTASSIUM CHLORIDE INJ 40 MEQ in SODIUM CHLORIDE 0.9% IV 500 ML 130 MEQ IVPB (12:16)
[2023-04-12] MEDS: POTASSIUM CHLORIDE 20 MEQ ER TABLET 40 MEQ PO (12:17)
[2023-04-12 17:10] LABS: Glucose Point of Care 199 mg/dl (65-105)
[2023-04-12] MEDS: ATORVASTATIN 40 MG TABLET PO (20:31)
[2023-04-12 20:32] LABS: Glucose Point of Care 288 mg/dl (65-105)
[2023-04-12] MEDS: INSULIN ASPART (*BKC) 100 UNITS/ML SUB-Q (20:32)
[2023-04-13] VITALS (9 sets, daily range): BP systolic 136–159; BP diastolic 67–75; PULSE 60–77; RESP 16–20; TEMP 36.4–36.8; O2SAT 96–99
[2023-04-13 05:34] LABS: Hematocrit 39.7 % (42.0-52.0); Hemoglobin 13.2 g/dL (14.0-18.0); Mean Corpuscular HGB Conc 33.2 g/dl (32-36); Mean Corpuscular Hemoglobin 30.5 pg (26-34); Mean Corpuscular Volume 91.7 fl (80-100); Mean Platelet Volume 10.9 fl (7.4-10.4); Platelet Count Result 287 k/mm3 (150-375); Red Blood Count 4.33 M/mm3 (4.6-6.20); Red Cell Distribution Width 13.6 % (11.5-14.5); White Blood Count 10.7 K/mm3 (4.5-10.0)
[2023-04-13 05:39] LABS: Anion Gap 9 mmol/L (8-16); Blood Urea Nitrogen 33 mg/dL (9-20); Calcium 8.6 mg/dL (8.4-10.2); Carbon Dioxide 34 mmol/L (22-30); Chloride 94 mmol/L (98-107); Estimated CRCL calculation 58 ml/min; Estimated Glomerular Filt Rate 51; Glucose 146 mg/dL (65-110); Magnesium 1.9 mg/dL (1.6-2.3); Potassium 3.1 mmol/L (3.4-5.0); Sodium 137 mmol/L (137-145)
[2023-04-13 08:21] LABS: Glucose Point of Care 164 mg/dl (65-105)
[2023-04-13] MEDS: METOPROLOL SUCCINATE EXT REL 50 MG TABCR PO (08:31)
[2023-04-13] MEDS: ESCITALOPRAM OXALATE 10 MG TABLET 20 MG PO (08:31)
[2023-04-13] MEDS: glipiZIDE XL 5 MG TABCR PO ×2 (08:32→16:54)
[2023-04-13] MEDS: CHOLECALCIFEROL 1,000 UNITS TABLET 2000 UNITS PO (08:32)
[2023-04-13] MEDS: MULTIVITAMINS /C LUTEIN (CENTRUM SILVER) TABLET *BKC 1 TAB PO (08:32)
[2023-04-13] MEDS: ASCORBIC ACID 500 MG TABLET 1000 MG PO (08:32)
[2023-04-13] MEDS: metOLazone 5 MG TABLET PO (08:32)
[2023-04-13] MEDS: POTASSIUM CHLORIDE 20 MEQ ER TABLET PO (08:32)
[2023-04-13] MEDS: ASPIRIN 81 MG ENTERIC TABLET PO (08:32)
[2023-04-13] MEDS: DOCUSATE SODIUM 100 MG CAPSULE PO ×2 (08:32→20:58)
[2023-04-13] MEDS: POTASSIUM CHLORIDE 20 MEQ ER TABLET 40 MEQ PO (11:01)
--- NOTE | 2023-04-13 11:43 | WPDPN ---
Progress Note: A&P Assessment and Plan (1) CVA (cerebral vascular accident): Qualifiers: CVA mechanism: occlusion Precerebral and cerebral artery: posterior cerebral artery Laterality of affected vessel: bilateral Qualified Code(s): I63.533 - Cerebral infarction due to unspecified occlusion or stenosis of bilateral posterior cerebral arteries Code(s): I63.9 - Cerebral infarction, unspecified Status: Acute Assessment and Plan: 04/12/2023 interval history: patient continue to c/o visual problem and MRI of the brain does show acute infarct in right occipital lobe. Abnormal cortical signal in this distribution may be calcification or microhemorrhage. patient is on Aspirin and increased his lipitor to 40mg q.day.also now patient is on plavix, cardiac echo showed preserver LV function and grade II diastolic dysfunction, otherwise it normal, patient is seen by Neurology and further recommendation to follow, will have a PT OT evaluate the patient, however patient is unsteady on his feet and unable to stand without help, will benefit going to rehab,possibly discharge to swing bed at [facility] tomorrow, patient has uncontrolled diabetes will have paraeducator talk to the patient and further recommendation to follow. was hoping to discharge patient to rehab however no insurance authorization from insurance company. patient is waiting for placement. (2) Depression: Code(s): F32.A - Depression, unspecified Status: Acute Assessment and Plan: Will continue home regimen and monitor (3) DM2 (diabetes mellitus, type 2): Qualifiers: Diabetes mellitus complication status: with neurologic complications Code(s): E11.9 - Type 2 diabetes mellitus without complications Status: Acute Assessment and Plan: Patient with uncontrolled diabetes with hemoglobin A1c of 11 will have a paraeducator discussed with the patient (4) Hypertension: Code(s): I10 - Essential (primary) hypertension Status: Acute Assessment and Plan: Will continue home regimen and monitor (5) Hyperlipidemia: Code(s): E78.5 - Hyperlipidemia, unspecified Status: Acute Plan Will increase patient Lipitor from 10 mg q.day to 40 mg q.day. Subjective Date/time seen: 04/12/23 11:43 Interval history: This is a 67-year-old male patient who came to the emergency room with complaints of visual problems.? The patient does have a history of diabetes.? Patient stated that he was out eating dinner with his last night around 530 and he noticed that he had some blurred vision to the periphery on the left eye.? The patient stated that he has not had an eye appointment in 2 years.? The patient went home and went to bed last night thinking that his vision was improved today.? However it persisted.? The patient continue to complain of right occipital headache.? The patient denies any difficulty swallowing or any problems with ambulating.? He has no focal weakness.? Patient stated that he is been off balance for the last several months.? He denies having any falls.? No further complaints except for the headache to the right occipital area.? His white count was 10.4.? H&H is 13.8 and 41.0.? Sodium is 136.? Chloride 96.? Anion gap is 5 BUN 25 creatinine 1.2.? His blood sugar was 186.? Head CTA was read as the following. Acute infarct in the right occipital lobe. 2. No aneurysm or significant intracranial arterial stenosis. 3. 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 4. 0% stenosis of the proximal internal carotid arteries relative to normal distal artery lumen diameters (NASCET criteria). The patient was given IV fluids in the emergency room.? Neurology has been consulted.?? 04/12/2023 interval history: patient continue to c/o visual problem and MRI of the brain does show acute infarct in right occipital lobe. Abnormal cortical signal in this distribution may be calcification or microhemor
[2023-04-13 11:57] LABS: Glucose Point of Care 171 mg/dl (65-105)
[2023-04-13] MEDS: INSULIN ASPART (*BKC) 100 UNITS/ML SUB-Q ×2 (16:58→20:58)
[2023-04-13 17:00] LABS: Glucose Point of Care 208 mg/dl (65-105)
[2023-04-13 20:48] LABS: Glucose Point of Care 273 mg/dl (65-105)
[2023-04-13] MEDS: ATORVASTATIN 40 MG TABLET PO (20:58)
[2023-04-14] VITALS (7 sets, daily range): BP systolic 140–146; BP diastolic 59–67; PULSE 60–72; RESP 16–18; TEMP 36.8–36.9; O2SAT 98
[2023-04-14 05:38] LABS: Hematocrit 38.8 % (42.0-52.0); Hemoglobin 12.7 g/dL (14.0-18.0); Mean Corpuscular HGB Conc 32.7 g/dl (32-36); Mean Corpuscular Volume 91.5 fl (80-100); Mean Platelet Volume 10.8 fl (7.4-10.4); Platelet Count Result 282 k/mm3 (150-375); Red Blood Count 4.24 M/mm3 (4.6-6.20); Red Cell Distribution Width 13.4 % (11.5-14.5); White Blood Count 10.5 K/mm3 (4.5-10.0)
[2023-04-14 05:56] LABS: Anion Gap 7 mmol/L (8-16); Blood Urea Nitrogen 31 mg/dL (9-20); Calcium 8.8 mg/dL (8.4-10.2); Carbon Dioxide 36 mmol/L (22-30); Chloride 93 mmol/L (98-107); Estimated CRCL calculation 62 ml/min; Estimated Glomerular Filt Rate 55; Glucose 154 mg/dL (65-110); Magnesium 1.8 mg/dL (1.6-2.3); Potassium 3.2 mmol/L (3.4-5.0); Sodium 136 mmol/L (137-145)
[2023-04-14] MEDS: ASCORBIC ACID 500 MG TABLET 1000 MG PO (08:26)
[2023-04-14] MEDS: DOCUSATE SODIUM 100 MG CAPSULE PO (08:26)
[2023-04-14] MEDS: metOLazone 5 MG TABLET PO (08:26)
[2023-04-14] MEDS: ASPIRIN 81 MG ENTERIC TABLET PO (08:26)
[2023-04-14] MEDS: MULTIVITAMINS /C LUTEIN (CENTRUM SILVER) TABLET *BKC 1 TAB PO (08:26)
[2023-04-14] MEDS: ESCITALOPRAM OXALATE 10 MG TABLET 20 MG PO (08:27)
[2023-04-14] MEDS: glipiZIDE XL 5 MG TABCR PO (08:27)
[2023-04-14] MEDS: POTASSIUM CHLORIDE 20 MEQ ER TABLET PO (08:27)
[2023-04-14] MEDS: METOPROLOL SUCCINATE EXT REL 50 MG TABCR PO (08:27)
[2023-04-14] MEDS: CHOLECALCIFEROL 1,000 UNITS TABLET 2000 UNITS PO (08:27)
[2023-04-14 08:28] LABS: Glucose Point of Care 181 mg/dl (65-105)
[2023-04-14] MEDS: POTASSIUM CHLORIDE 20 MEQ ER TABLET 40 MEQ PO (11:32)
[2023-04-14 12:08] LABS: Glucose Point of Care 173 mg/dl (65-105)
--- NOTE | 2023-04-14 14:21 | WPDPN ---
Progress Note: A&P Assessment and Plan (1) CVA (cerebral vascular accident): Qualifiers: CVA mechanism: occlusion Precerebral and cerebral artery: posterior cerebral artery Laterality of affected vessel: bilateral Qualified Code(s): I63.533 - Cerebral infarction due to unspecified occlusion or stenosis of bilateral posterior cerebral arteries Code(s): I63.9 - Cerebral infarction, unspecified Status: Acute Assessment and Plan: 04/14/2023 interval history: patient continue to c/o visual problem and MRI of the brain does show acute infarct in right occipital lobe. Abnormal cortical signal in this distribution may be calcification or microhemorrhage. patient is on Aspirin and increased his lipitor to 40mg q.day.also now patient is on plavix, cardiac echo showed preserver LV function and grade II diastolic dysfunction, otherwise it normal, patient is seen by Neurology and further recommendation to follow, will have a PT OT evaluate the patient, however patient is unsteady on his feet and unable to stand without help, will benefit going to rehab,possibly discharge to swing bed at [facility] tomorrow, patient has uncontrolled diabetes, ems educator talk to the patient and further recommendation to follow. was hoping to discharge patient to rehab however no insurance authorization from insurance company. patient is waiting for placement. today her family is present in the room. (2) Depression: Code(s): F32.A - Depression, unspecified Status: Acute Assessment and Plan: Will continue home regimen and monitor (3) DM2 (diabetes mellitus, type 2): Qualifiers: Diabetes mellitus complication status: with neurologic complications Code(s): E11.9 - Type 2 diabetes mellitus without complications Status: Acute Assessment and Plan: Patient with uncontrolled diabetes with hemoglobin A1c of 11 will have a ems educator discussed with the patient (4) Hypertension: Code(s): I10 - Essential (primary) hypertension Status: Acute Assessment and Plan: Will continue home regimen and monitor (5) Hyperlipidemia: Code(s): E78.5 - Hyperlipidemia, unspecified Status: Acute Plan Will increase patient Lipitor from 10 mg q.day to 40 mg q.day. Subjective Date/time seen: 04/14/23 14:21 Interval history: This is a 67-year-old male patient who came to the emergency room with complaints of visual problems.? The patient does have a history of diabetes.? Patient stated that he was out eating dinner with his last night around 530 and he noticed that he had some blurred vision to the periphery on the left eye.? The patient stated that he has not had an eye appointment in 2 years.? The patient went home and went to bed last night thinking that his vision was improved today.? However it persisted.? The patient continue to complain of right occipital headache.? The patient denies any difficulty swallowing or any problems with ambulating.? He has no focal weakness.? Patient stated that he is been off balance for the last several months.? He denies having any falls.? No further complaints except for the headache to the right occipital area.? His white count was 10.4.? H&H is 13.8 and 41.0.? Sodium is 136.? Chloride 96.? Anion gap is 5 BUN 25 creatinine 1.2.? His blood sugar was 186.? Head CTA was read as the following. Acute infarct in the right occipital lobe. 2. No aneurysm or significant intracranial arterial stenosis. 3. 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 4. 0% stenosis of the proximal internal carotid arteries relative to normal distal artery lumen diameters (NASCET criteria). The patient was given IV fluids in the emergency room.? Neurology has been consulted.?? 04/14/2023 interval history: patient continue to c/o visual problem and MRI of the brain does show acute infarct in right occipital lobe. Abnormal cortical signal in this distribution
--- NOTE | 2023-04-14 15:09 | PM.DS ---
DS: Admitting Diagnosis Discharge Date 04/14/2023 Admitting Diagnosis visual problems. DS: Discharge Diagnosis Discharge Diagnosis (1) CVA (cerebral vascular accident): Code(s): I63.9 - Cerebral infarction, unspecified Status: Acute Assessment and Plan: 04/14/2023 interval history: patient continue to c/o visual problem and MRI of the brain does show acute infarct in right occipital lobe. Abnormal cortical signal in this distribution may be calcification or microhemorrhage. patient is on Aspirin and increased his lipitor to 40mg q.day.also now patient is on plavix, cardiac echo showed preserver LV function and grade II diastolic dysfunction, otherwise it normal, patient is seen by Neurology and further recommendation to follow, will have a PT OT evaluate the patient, however patient is unsteady on his feet and unable to stand without help, will benefit going to rehab,possibly discharge to swing bed at [facility] tomorrow, patient has uncontrolled diabetes, community educator talk to the patient and further recommendation to follow. was hoping to discharge patient to rehab however no insurance authorization from insurance company. patient is waiting for placement. today her family is present in the room. 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: without intermodal owner operator truck driver use Diabetes mellitus complication status: with neurologic complications Diabetes mellitus complication detail: with polyneuropathy Qualified Code(s): E11.42 - Type 2 diabetes mellitus with diabetic polyneuropathy Code(s): E11.9 - Type 2 diabetes mellitus without complications Status: Acute Assessment and Plan: Patient with uncontrolled diabetes with hemoglobin A1c of 11 will have a community educator discussed with the patient (4) Hypertension: Qualifiers: Hypertension type: primary hypertension Qualified Code(s): I10 - Essential (primary) hypertension Code(s): I10 - Essential (primary) hypertension Status: Acute Assessment and Plan: Will continue home regimen and monitor (5) Hyperlipidemia: Qualifiers: Hyperlipidemia type: mixed hyperlipidemia Qualified Code(s): E78.2 - Mixed hyperlipidemia Code(s): E78.5 - Hyperlipidemia, unspecified Status: Acute Plan Will increase patient Lipitor from 10 mg q.day to 40 mg q.day. DS: Summary Hospital Course Reason for hospitalization: Chief Complaint: This is a 67-year-old male patient who came to the emergency room with complaints of visual problems.? The patient does have a history of diabetes.? Patient stated that he was out eating dinner with his last night around 530 and he noticed that he had some blurred vision to the periphery on the left eye.? The patient stated that he has not had an eye appointment in 2 years.? The patient went home and went to bed last night thinking that his vision was improved today.? However it persisted.? The patient continue to complain of right occipital headache.? The patient denies any difficulty swallowing or any problems with ambulating.? He has no focal weakness.? Patient stated that he is been off balance for the last several months.? He denies having any falls.? No further complaints except for the headache to the right occipital area.? His white count was 10.4.? H&H is 13.8 and 41.0.? Sodium is 136.? Chloride 96.? Anion gap is 5 BUN 25 creatinine 1.2.? His blood sugar was 186.? Head CTA was read as the following. Acute infarct in the right occipital lobe. 2. No aneurysm or significant intracranial arterial stenosis. 3. 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 4. 0% stenosis o
== END 2023-04-14 16:02 | DRG 66 ==
LOC: ANHED 15:53 → ANH2MED 16:59
PROVIDERS: Nurse Practitioner; Admitting Provider Internal Medicine; Emergency Provider Emergency Medicine; Visit Provider Family Medicine
DX: I63.9 Cerebral infarction, unspecified (principal); H53.462 Homonymous bilateral field defects, left side; H53.8 Other visual disturbances; I10 Essential (primary) hypertension; E11.40 Type 2 diabetes mellitus with diabetic neuropathy, unspecified; E11.65 Type 2 diabetes mellitus with hyperglycemia; E78.5 Hyperlipidemia, unspecified; R29.6 Repeated falls; R29.700 NIHSS score 0; F32.A Depression, unspecified; Z87.891 Personal history of nicotine dependence; Z79.82 Long term (current) use of aspirin
CPT/HCPCS: 36415; 70496; 70498; 70553; 80048; 80053; 82948; 83036; 83735; 84439; 84443; 84480; 85025; 85027; 85610; 85730; 93005; 96360; 96374; 96375; 97110; 97112; 97116; 97161; 97165; 97530; 97535; 99285; A9270; A9577; C8929; G0378; J1815; J3480; J7030; J7040; Q9957; Q9967

== ENCOUNTER 2023-04-14 17:20 | Inpatient (IN) | payer MEDICARE, BC, SELFPAY ==
--- NOTE | 2023-04-14 17:37 | PC.NURSE ---
Patietn admitted to room 226, is alert, oriented, no c/o pain, oriented to call light.
[2023-04-14 17:41] VITALS: BMI 37.6
--- NOTE | 2023-04-14 18:20 | PM.IMHP ---
H&P: HPI History of Present Illness Date/Time: 04/14/23 1600 Chief Complaint: Swing bed admission s/p new stroke Narrative: Patient is 67-year-old male with a past medical history hyperlipidemia, hypertension, diabetes type 2, pneumothorax who presented to the ED on 04/06/2023 at [facility] with complaints of visual disturbances. the patient his brought dinner when he noticed that his vision had changes suddenly. He told his at that time that she would have to drive home as he was not able to see well. They went home and patient went to bed. Waking up than which morning the patient's vision did not change and he was having headaches. CT of the head was performed showed acute infarct to the right occipital lobe. MRI of the brain confirmed acute infarct. Neurology was consulted. CTA also did indicated moderate stenosis of left Vertebral artery. echo indicated no PFO. Patient was started on Plavix which has been continued. Aspirin has also been continued from home. Patient does have a known diabetes glucose has been within control. Lipid panel is ordered currently atorvastatin 40 mg has been continued from home. Will assess LDL for possible titration atorvastatin. Currently patient is being admitted to a swing bed at [facility] for gait and balance training. Patient did state that he was having issues with balance and gait due to the vision loss. patient has been doing well with gait with a walker however does have moments of balance loss and instability. PT and OT have been consulted patient continue therapy. Currently patient denies any chest pain, shortness of breath, nausea, vomiting, diarrhea or constipation. Labs and vital signs appear to be stable at this time. Patient is being admitted to the hospitalist service for swing bed admission and rehab needs. H&P was performed at [facility] prior to admission to [facility] patient was seen and examined in room 241 Review of Systems Review of Systems: All systems reviewed & are unremarkable except as noted in HPI and below PMFSH Past Medical History Medical History Acute stroke due to ischemia Depression DM2 (diabetes mellitus, type 2) History of pneumonia History of pneumothorax Hyperlipidemia Hypertension Surgical History Surgical History H/O elbow surgery History of chest tube placement Family History Family History Other Hypertension Social History Social History (Updated 04/15/23 @ 06:56 by JIMENA Banuelos) Social History: The patient is and lives with his . He has 2 children. he is a former smoker. 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 He is a former smoker. His Albina is the durable power tower truck driver for healthcare Code status full code Smoking packs per day: 1 Smoking cigarettes per day: 20.0 Smoking status: Former smoker Tobacco type: cigarettes and e-cigarettes/vaping Smoking end date: 09/20/09 Alcohol intake: current Substance use: never Substance use type: does not use Lack of Transportation: No Lack of Food: Never True Current Housing: I Have Housing Concerned About Future Housing: No Difficulty Paying Gas/Electric Bills: No Difficulty Paying for Meds: No Currently Unemployed: No Education: High School Diploma/GED Difficulty w/ Childcare or Family Care: No Spiritual care concerns: No Meds Home Medications and Allergies Home Medications Medication Instructions Recorded Confirmed Type ascorbic acid (vitamin C) 1,000 mg 1 g PO DAILY 04/07/23 04/14/23 History tablet cholecalciferol (vitamin D3) 50 2,000 unit PO DAILY 04/07/23 04/14/23 History mcg (2,000 unit) tablet (Vitamin D3) escitalopram oxalate 20 mg tablet 20 mg PO DAILY 04/07/23 04/14/23 Histo
[2023-04-14] MEDS: DOCUSATE SODIUM 100 MG CAPSULE PO (20:28)
[2023-04-14] MEDS: ATORVASTATIN 40 MG TABLET PO (20:28)
[2023-04-14 20:32] LABS: Glucose Point of Care 242 mg/dl (65-105)
--- NOTE | 2023-04-14 20:46 | PC.NURSE ---
Poor left eye peripheral vision
[2023-04-15] VITALS: BP 145/72; PULSE 63; RESP 16; TEMP 36; O2SAT 96
--- NOTE | 2023-04-15 07:12 | P.PNIM_ITS ---
Progress Note: A&P Assessment and Plan (1) Gait disturbance, post-stroke: Code(s): I69.398 - Other sequelae of cerebral infarction; R26.9 - Unspecified abnormalities of gait and mobility Status: Acute Assessment and Plan: * gait balance is unstable * PT and OT eval and treat * swing bed admission for gait and balance training * continue walker use (2) Peripheral vision loss: Qualifiers: Laterality: left Qualified Code(s): H53.452 - Other localized visual field defect, left eye Code(s): H53.459 - Other localized visual field defect, unspecified eye Status: Acute Assessment and Plan: * noted post stroke * causing gait disturbances and balance instability * PT and OT * swing bed admission * will need Ophthalmology follow-up post discharge (3) Acute stroke due to ischemia: Code(s): I63.9 - Cerebral infarction, unspecified Status: Acute Assessment and Plan: * CTA and MRI of the brain confirmed acute occipital lobe stroke on the right * continue aspirin, Plavix, atorvastatin * will need follow-up vascular consult for moderate stenosis of the left vertebral artery * PT and OT * swing bed admission for balance, gait, and mobility (4) Depression: Qualifiers: Depression Type: unspecified Qualified Code(s): F32.A - Depression, unspecified Code(s): F32.A - Depression, unspecified Status: Acute Assessment and Plan: * stable continue home medications (5) DM2 (diabetes mellitus, type 2): Qualifiers: Diabetes mellitus complication detail: with polyneuropathy Diabetes mellitus complication status: with neurologic complications 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 insulin use: without terminal superintendent use Qualified Code(s): E11.42 - Type 2 diabetes mellitus with diabetic polyneuropathy Code(s): E11.9 - Type 2 diabetes mellitus without complications Status: Acute Assessment and Plan: * current glucose 242 * continue home Januvia, glipizide * insulin sliding scale * hypoglycemia protocol * Accu-Cheks AC and HS * trend glucose * adjust therapy as indicated (6) Hypertension: Qualifiers: Hypertension type: primary hypertension Qualified Code(s): I10 - Esse ntial (primary) hypertension Code(s): I10 - Essential (primary) hypertension Status: Acute Assessment and Plan: * current blood pressure 145/72 * continue metoprolol 50 mg p.o. daily * trend blood pressure * adjust medications as indicated (7) Hyperlipidemia: Qualifiers: Hyperlipidemia type: mixed hyperlipidemia Qualified Code(s): E78.2 - Mixed hyperlipidemia Code(s): E78.5 - Hyperlipidemia, unspecified Status: Acute Assessment and Plan: * lipid panel ordered * continue atorvastatin 40 mg p.o. daily * titrate according to lipid panel results * goal LDL less than 70 Time Spent With Patient Time: 38 minutes Subjective Date/time seen: 04/15/23 07:12 Interval history: 04/15/23714 patient is currently resting and chair. Currently he denies any chest pain, s hortness of breath, nausea, vomiting, diarrhea or constipation. Patient does have a decent appetite. Peripheral vision is still compromised. lipid panel pending
--- NOTE | 2023-04-15 07:12 | PM.IMPN ---
Progress Note: A&P Assessment and Plan (1) Gait disturbance, post-stroke: Code(s): I69.398 - Other sequelae of cerebral infarction; R26.9 - Unspecified abnormalities of gait and mobility Status: Acute Assessment and Plan: gait balance is unstable PT and OT eval and treat swing bed admission for gait and balance training continue walker use (2) Peripheral vision loss: Qualifiers: Laterality: left Qualified Code(s): H53.452 - Other localized visual field defect, left eye Code(s): H53.459 - Other localized visual field defect, unspecified eye Status: Acute Assessment and Plan: noted post stroke causing gait disturbances and balance instability PT and OT swing bed admission will need Ophthalmology follow-up post discharge (3) Acute stroke due to ischemia: Code(s): I63.9 - Cerebral infarction, unspecified Status: Acute Assessment and Plan: CTA and MRI of the brain confirmed acute occipital lobe stroke on the right continue aspirin, Plavix, atorvastatin will need follow-up vascular consult for moderate stenosis of the left vertebral artery PT and OT swing bed admission for balance, gait, and mobility (4) Depression: Qualifiers: Depression Type: unspecified Qualified Code(s): F32.A - Depression, unspecified Code(s): F32.A - Depression, unspecified Status: Acute Assessment and Plan: stable continue home medications (5) DM2 (diabetes mellitus, type 2): Qualifiers: Diabetes mellitus complication detail: with polyneuropathy Diabetes mellitus complication status: with neurologic complications 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 mining 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 use Qualified Code(s): E11.42 - Type 2 diabetes mellitus with diabetic polyneuropathy Code(s): E11.9 - Type 2 diabetes mellitus without complications Status: Acute Assessment and Plan: current glucose 242 continue home Januvia, glipizide insulin sliding scale hypoglycemia protocol Accu-Cheks AC and HS trend glucose adjust therapy as indicated (6) Hypertension: Qualifiers: Hypertension type: primary hypertension Qualified Code(s): I10 - Essential (primary) hypertension Code(s): I10 - Essential (primary) hypertension Status: Acute Assessment and Plan: current blood pressure 145/72 continue metoprolol 50 mg p.o. daily trend blood pressure adjust medications as indicated (7) Hyperlipidemia: Qualifiers: Hyperlipidemia type: mixed hyperlipidemia Qualified Code(s): E78.2 - Mixed hyperlipidemia Code(s): E78.5 - Hyperlipidemia, unspecified Status: Acute Assessment and Plan: lipid panel ordered continue atorvastatin 40 mg p.o. daily titrate according to lipid panel results goal LDL less than 70 Time Spent With Patient Time: 38 minutes Subjective Date/time seen: 04/15/23 07:12 Interval history: 04/15/23 0715 patient is currently resting and chair. Currently he denies any chest pain, shortness of breath, nausea, vomiting, diarrhea or constipation. Patient does have a decent appetite. Peripheral vision is still compromised. lipid panel pending for possible titration of statin drugs. continue PT and OT as ordered. 04/14/23? 1600 Patient is 67-year-old male with a past medical history hyperlipidemia, hypertension, diabetes type 2, pneumothorax who presented to the ED on 04/06/2023 at [facility] with complaints of visual disturbances. the patient his brought dinner when he noticed that his vision had changes suddenly.? He told his at that time that she would have to drive home as he was not able to see well.? They went home and patient went to bed.? Waking up than which morning the patient's vision did not change and h
[2023-04-15 07:34] LABS: Glucose Point of Care 153 mg/dl (65-105)
[2023-04-15 08:00] VITALS: BP 136/74; PULSE 74; RESP 16; TEMP 36.1; O2SAT 95
[2023-04-15] MEDS: polyethylene glycoL 3350 17 GM POWD.PACK PO (08:45)
[2023-04-15] MEDS: metOLazone 2.5 MG TABLET 5 MG PO (08:45)
[2023-04-15] MEDS: ESCITALOPRAM OXALATE 10 MG TABLET 20 MG PO (08:47)
[2023-04-15 08:48] VITALS: PULSE 72
[2023-04-15] MEDS: METOPROLOL SUCCINATE EXT REL 50 MG TABCR PO (08:48)
[2023-04-15] MEDS: ASPIRIN 81 MG ENTERIC TABLET PO (08:50)
[2023-04-15] MEDS: DOCUSATE SODIUM 100 MG CAPSULE PO ×2 (08:50→20:15)
[2023-04-15] MEDS: CHOLECALCIFEROL 1,000 UNITS TABLET 2000 UNITS PO (08:50)
[2023-04-15] MEDS: glipiZIDE XL 5 MG TABCR PO ×2 (08:50→16:58)
[2023-04-15] MEDS: CLOPIDOGREL BISULFATE 75 MG TABLET PO (08:50)
[2023-04-15] MEDS: POTASSIUM CHLORIDE 20 MEQ ER TABLET PO (08:50)
[2023-04-15] MEDS: THERAPEUTIC MULTIVITAMINS/MINERALS TAB (*BKC) 1 TABLET PO (08:51)
[2023-04-15] MEDS: ASCORBIC ACID 500 MG TABLET 1000 MG PO (08:52)
[2023-04-15 10:44] LABS: Cholesterol 114 mg/dL (0-200); HDL Direct 30 mg/dL (40-60); LDL Cholesterol Calculated 55 mg/dL (<130); Triglycerides 144 mg/dL (0-150)
[2023-04-15 11:27] LABS: Glucose Point of Care 224 mg/dl (65-105)
[2023-04-15] MEDS: INSULIN HUMAN LISPRO (*BKC) 1,000 UNITS/10 ML VIAL SUB-Q (12:08)
[2023-04-15 16:00] VITALS: BP 148/72; PULSE 74; RESP 18; TEMP 36.3; O2SAT 95
[2023-04-15 17:03] LABS: Glucose Point of Care 129 mg/dl (65-105)
[2023-04-15 20:00] VITALS: PULSE 74; RESP 18; O2SAT 95
[2023-04-15] MEDS: ATORVASTATIN 40 MG TABLET PO (20:15)
[2023-04-15 20:22] LABS: Glucose Point of Care 249 mg/dl (65-105)
[2023-04-15 23:54] VITALS: BP 146/65; PULSE 71; RESP 18; TEMP 36.2; O2SAT 96
--- NOTE | 2023-04-16 00:47 | PC.NURSE ---
RN reviewed charting, agrees with documentation
--- NOTE | 2023-04-16 07:15 | PC.NURSE ---
On 04/16/23, the MEDICAL RECORD CONSULTANT, [ Rachel Templeton ], provided care and completed [facility] documentation on this patient. I have reviewed the MEDICAL RECORD CONSULTANT's documentation and agree with the findings.
[2023-04-16 07:50] LABS: Glucose Point of Care 165 mg/dl (65-105)
[2023-04-16 08:00] VITALS: BP 160/74; PULSE 78; RESP 18; TEMP 36.3; O2SAT 95
[2023-04-16] MEDS: CHOLECALCIFEROL 1,000 UNITS TABLET 2000 UNITS PO (09:05)
[2023-04-16] MEDS: POTASSIUM CHLORIDE 20 MEQ ER TABLET PO (09:05)
[2023-04-16] MEDS: THERAPEUTIC MULTIVITAMINS/MINERALS TAB (*BKC) 1 TABLET PO (09:05)
[2023-04-16] MEDS: CLOPIDOGREL BISULFATE 75 MG TABLET PO (09:06)
[2023-04-16] MEDS: ESCITALOPRAM OXALATE 10 MG TABLET 20 MG PO (09:06)
[2023-04-16] MEDS: ASPIRIN 81 MG ENTERIC TABLET PO (09:06)
[2023-04-16] MEDS: ASCORBIC ACID 500 MG TABLET 1000 MG PO (09:06)
[2023-04-16 09:07] VITALS: PULSE 72
[2023-04-16] MEDS: METOPROLOL SUCCINATE EXT REL 50 MG TABCR PO (09:07)
[2023-04-16] MEDS: metOLazone 2.5 MG TABLET 5 MG PO (09:08)
[2023-04-16] MEDS: DOCUSATE SODIUM 100 MG CAPSULE PO ×2 (09:08→20:19)
[2023-04-16] MEDS: glipiZIDE XL 5 MG TABCR PO ×2 (09:09→17:08)
[2023-04-16 11:29] LABS: Glucose Point of Care 202 mg/dl (65-105)
[2023-04-16] MEDS: INSULIN HUMAN LISPRO (*BKC) 1,000 UNITS/10 ML VIAL SUB-Q (12:16)
[2023-04-16 15:52] VITALS: BP 138/72; PULSE 78; RESP 18; TEMP 36.1; O2SAT 98
[2023-04-16 16:51] LABS: Glucose Point of Care 96 mg/dl (65-105)
[2023-04-16] MEDS: ATORVASTATIN 40 MG TABLET PO (20:19)
[2023-04-16 20:26] LABS: Glucose Point of Care 157 mg/dl (65-105)
[2023-04-17] VITALS: BP 140/64; PULSE 62; RESP 16; TEMP 36.2; O2SAT 97
[2023-04-17 08:00] VITALS: BP 126/59; PULSE 68; RESP 18; TEMP 36.3; O2SAT 97
[2023-04-17 08:12] LABS: Glucose Point of Care 173 mg/dl (65-105)
[2023-04-17 09:54] VITALS: PULSE 68
[2023-04-17] MEDS: THERAPEUTIC MULTIVITAMINS/MINERALS TAB (*BKC) 1 TABLET PO (09:54)
[2023-04-17] MEDS: ASCORBIC ACID 500 MG TABLET 1000 MG PO (09:54)
[2023-04-17] MEDS: METOPROLOL SUCCINATE EXT REL 50 MG TABCR PO (09:54)
[2023-04-17] MEDS: CHOLECALCIFEROL 1,000 UNITS TABLET 2000 UNITS PO (09:54)
[2023-04-17] MEDS: CLOPIDOGREL BISULFATE 75 MG TABLET PO (09:54)
[2023-04-17] MEDS: ASPIRIN 81 MG ENTERIC TABLET PO (09:54)
[2023-04-17] MEDS: DOCUSATE SODIUM 100 MG CAPSULE PO ×2 (09:54→20:46)
[2023-04-17] MEDS: ESCITALOPRAM OXALATE 10 MG TABLET 20 MG PO (09:54)
[2023-04-17] MEDS: POTASSIUM CHLORIDE 20 MEQ ER TABLET PO (09:54)
[2023-04-17] MEDS: glipiZIDE XL 5 MG TABCR PO ×2 (09:54→17:06)
[2023-04-17] MEDS: metOLazone 2.5 MG TABLET 5 MG PO (09:54)
[2023-04-17 12:02] LABS: Glucose Point of Care 211 mg/dl (65-105)
[2023-04-17] MEDS: INSULIN HUMAN LISPRO (*BKC) 1,000 UNITS/10 ML VIAL SUB-Q ×2 (12:05→17:06)
[2023-04-17 16:00] VITALS: BP 131/63; PULSE 64; RESP 17; TEMP 36.2; O2SAT 97
[2023-04-17 16:52] LABS: Glucose Point of Care 214 mg/dl (65-105)
[2023-04-17] MEDS: ATORVASTATIN 40 MG TABLET PO (20:46)
[2023-04-17 20:50] LABS: Glucose Point of Care 206 mg/dl (65-105)
--- NOTE | 2023-04-17 21:50 | PC.NURSE ---
Patient in recliner watching movie on tablet. alert and oriented. Able to voice needs. Patient states he can only see what appears to be smoke in his left peripheral vision. No c/o pain. Ambulates with walker. Able to feed self. Call light and belongings within reach.
[2023-04-18] VITALS: BP 135/62; PULSE 59; RESP 20; TEMP 35.7; O2SAT 96
[2023-04-18 07:57] LABS: Glucose Point of Care 180 mg/dl (65-105)
[2023-04-18 08:00] VITALS: BP 133/61; PULSE 94; RESP 18; TEMP 36.2; O2SAT 94
[2023-04-18] MEDS: DOCUSATE SODIUM 100 MG CAPSULE PO ×2 (09:08→21:15)
[2023-04-18] MEDS: CHOLECALCIFEROL 1,000 UNITS TABLET 2000 UNITS PO (09:08)
[2023-04-18] MEDS: glipiZIDE XL 5 MG TABCR PO ×2 (09:08→17:36)
[2023-04-18] MEDS: CLOPIDOGREL BISULFATE 75 MG TABLET PO (09:08)
[2023-04-18] MEDS: ESCITALOPRAM OXALATE 10 MG TABLET 20 MG PO (09:08)
[2023-04-18 09:09] VITALS: PULSE 71
[2023-04-18] MEDS: ASCORBIC ACID 500 MG TABLET 1000 MG PO (09:09)
[2023-04-18] MEDS: metOLazone 2.5 MG TABLET 5 MG PO (09:09)
[2023-04-18] MEDS: POTASSIUM CHLORIDE 20 MEQ ER TABLET PO (09:09)
[2023-04-18] MEDS: ASPIRIN 81 MG ENTERIC TABLET PO (09:09)
[2023-04-18] MEDS: THERAPEUTIC MULTIVITAMINS/MINERALS TAB (*BKC) 1 TABLET PO (09:09)
[2023-04-18] MEDS: METOPROLOL SUCCINATE EXT REL 50 MG TABCR PO (09:09)
[2023-04-18 11:53] LABS: Glucose Point of Care 204 mg/dl (65-105)
[2023-04-18] MEDS: INSULIN HUMAN LISPRO (*BKC) 1,000 UNITS/10 ML VIAL SUB-Q (12:04)
[2023-04-18 16:00] VITALS: BP 128/94; PULSE 72; RESP 19; TEMP 36.1; O2SAT 95
[2023-04-18 17:03] LABS: Glucose Point of Care 136 mg/dl (65-105)
[2023-04-18] MEDS: ATORVASTATIN 40 MG TABLET PO (21:15)
[2023-04-18 22:06] LABS: Glucose Point of Care 210 mg/dl (65-105)
[2023-04-18 23:03] VITALS: BP 138/59; PULSE 62; RESP 16; TEMP 36.6; O2SAT 97
[2023-04-19 07:39] LABS: Glucose Point of Care 177 mg/dl (65-105)
[2023-04-19 07:59] VITALS: BP 142/61; PULSE 63; RESP 14; TEMP 36.6; O2SAT 97
[2023-04-19] MEDS: CHOLECALCIFEROL 1,000 UNITS TABLET 2000 UNITS PO (08:53)
[2023-04-19] MEDS: ASCORBIC ACID 500 MG TABLET 1000 MG PO (08:54)
[2023-04-19] MEDS: ESCITALOPRAM OXALATE 10 MG TABLET 20 MG PO (08:54)
[2023-04-19] MEDS: ASPIRIN 81 MG ENTERIC TABLET PO (08:55)
[2023-04-19] MEDS: metOLazone 2.5 MG TABLET 5 MG PO (08:55)
[2023-04-19] MEDS: THERAPEUTIC MULTIVITAMINS/MINERALS TAB (*BKC) 1 TABLET PO (08:55)
[2023-04-19] MEDS: DOCUSATE SODIUM 100 MG CAPSULE PO ×2 (08:55→20:18)
[2023-04-19] MEDS: glipiZIDE XL 5 MG TABCR PO ×2 (08:56→16:51)
[2023-04-19] MEDS: POTASSIUM CHLORIDE 20 MEQ ER TABLET PO (08:56)
[2023-04-19] MEDS: CLOPIDOGREL BISULFATE 75 MG TABLET PO (08:56)
[2023-04-19 08:57] VITALS: PULSE 63
[2023-04-19] MEDS: METOPROLOL SUCCINATE EXT REL 50 MG TABCR PO (08:57)
[2023-04-19 11:58] LABS: Glucose Point of Care 190 mg/dl (65-105)
[2023-04-19 16:00] VITALS: BP 131/61; PULSE 65; TEMP 36.4; O2SAT 97
[2023-04-19 16:57] LABS: Glucose Point of Care 130 mg/dl (65-105)
[2023-04-19 20:00] VITALS: PULSE 65; RESP 14; O2SAT 97
[2023-04-19] MEDS: ATORVASTATIN 40 MG TABLET PO (20:18)
[2023-04-19 20:23] LABS: Glucose Point of Care 234 mg/dl (65-105)
[2023-04-20] VITALS: BP 144/61; PULSE 64; RESP 17; TEMP 36.4; O2SAT 94
[2023-04-20 07:37] LABS: Glucose Point of Care 174 mg/dl (65-105)
[2023-04-20 08:00] VITALS: BP 143/64; PULSE 58; RESP 16; TEMP 35.9; O2SAT 98
[2023-04-20] MEDS: CHOLECALCIFEROL 1,000 UNITS TABLET 2000 UNITS PO (08:45)
[2023-04-20] MEDS: THERAPEUTIC MULTIVITAMINS/MINERALS TAB (*BKC) 1 TABLET PO (08:45)
[2023-04-20] MEDS: ASCORBIC ACID 500 MG TABLET 1000 MG PO (08:46)
[2023-04-20] MEDS: CLOPIDOGREL BISULFATE 75 MG TABLET PO (08:46)
[2023-04-20] MEDS: glipiZIDE XL 5 MG TABCR PO ×2 (08:47→17:08)
[2023-04-20] MEDS: metOLazone 2.5 MG TABLET 5 MG PO (08:47)
[2023-04-20] MEDS: ASPIRIN 81 MG ENTERIC TABLET PO (08:47)
[2023-04-20] MEDS: POTASSIUM CHLORIDE 20 MEQ ER TABLET PO (08:47)
[2023-04-20 08:48] VITALS: PULSE 80
[2023-04-20] MEDS: DOCUSATE SODIUM 100 MG CAPSULE PO ×2 (08:48→20:30)
[2023-04-20] MEDS: METOPROLOL SUCCINATE EXT REL 50 MG TABCR PO (08:48)
[2023-04-20] MEDS: ESCITALOPRAM OXALATE 10 MG TABLET 20 MG PO (08:49)
[2023-04-20 11:33] LABS: Glucose Point of Care 197 mg/dl (65-105)
--- NOTE | 2023-04-20 13:58 | PHAR ---
VERIFIED PT.'S HOME MEDICATION DUPIXENT (DUPILUMAMB) 300MG/2ML INJECTION. INJECT WHOLE SYRINGE (2ML/300MCG) UNDER THE SKIN EVERY 2 WEEKS.
--- NOTE | 2023-04-20 14:30 | PC.NURSE ---
Group Exercise Instructor administered bi weekly non formulary drug via subcutaneous injection. Group Exercise Instructor verified proper injection site with pharmacist prior to administration. Patient tolerated well.
[2023-04-20 16:00] VITALS: BP 139/65; PULSE 73; RESP 18; TEMP 36.4; O2SAT 99
[2023-04-20 17:04] LABS: Glucose Point of Care 186 mg/dl (65-105)
[2023-04-20 20:00] VITALS: PULSE 73; RESP 18; O2SAT 99
[2023-04-20] MEDS: ATORVASTATIN 40 MG TABLET PO (20:30)
[2023-04-20 20:44] LABS: Glucose Point of Care 232 mg/dl (65-105)
[2023-04-21] VITALS: BP 149/73; PULSE 68; RESP 18; TEMP 36.1; O2SAT 96
[2023-04-21 08:00] VITALS: BP 142/67; PULSE 67; RESP 14; TEMP 36.4; O2SAT 98
[2023-04-21] MEDS: CHOLECALCIFEROL 1,000 UNITS TABLET 2000 UNITS PO (08:34)
[2023-04-21] MEDS: ASCORBIC ACID 500 MG TABLET 1000 MG PO (08:35)
[2023-04-21] MEDS: metOLazone 2.5 MG TABLET 5 MG PO (08:35)
[2023-04-21] MEDS: POTASSIUM CHLORIDE 20 MEQ ER TABLET PO (08:36)
[2023-04-21] MEDS: ESCITALOPRAM OXALATE 10 MG TABLET 20 MG PO (08:38)
[2023-04-21] MEDS: glipiZIDE XL 5 MG TABCR PO ×2 (08:38→16:59)
[2023-04-21] MEDS: THERAPEUTIC MULTIVITAMINS/MINERALS TAB (*BKC) 1 TABLET PO (08:38)
[2023-04-21 08:39] VITALS: PULSE 71
[2023-04-21] MEDS: METOPROLOL SUCCINATE EXT REL 50 MG TABCR PO (08:39)
[2023-04-21] MEDS: CLOPIDOGREL BISULFATE 75 MG TABLET PO (08:39)
[2023-04-21] MEDS: ASPIRIN 81 MG ENTERIC TABLET PO (08:39)
[2023-04-21] MEDS: DOCUSATE SODIUM 100 MG CAPSULE PO ×2 (08:39→20:36)
[2023-04-21 11:48] LABS: Glucose Point of Care 165 mg/dl (65-105)
[2023-04-21 15:48] VITALS: BP 135/59; PULSE 70; RESP 14; TEMP 36.5; O2SAT 96
[2023-04-21 16:58] LABS: Glucose Point of Care 238 mg/dl (65-105)
[2023-04-21] MEDS: INSULIN HUMAN LISPRO (*BKC) 1,000 UNITS/10 ML VIAL SUB-Q (16:59)
[2023-04-21 20:00] VITALS: PULSE 70; RESP 14; O2SAT 96
[2023-04-21] MEDS: ATORVASTATIN 40 MG TABLET PO (20:36)
[2023-04-21 20:40] LABS: Glucose Point of Care 216 mg/dl (65-105)
[2023-04-22] VITALS: BP 145/67; PULSE 64; RESP 18; TEMP 36.1; O2SAT 96
[2023-04-22 00:15] LABS: Glucose Point of Care 167 mg/dl (65-105)
[2023-04-22 05:41] LABS: Basophils Absolute Auto 0.11 K/mm3 (0.00-0.10); Basophils Percent Auto 1.2 % (0.0-1.0); Eosinophils Absolute Auto 0.48 K/mm3 (0.02-0.50); Eosinophils Percent Auto 5.3 % (1.0-6.0); Hematocrit 37.2 % (37.0-46.0); Hemoglobin 12.6 g/dL (12.4-15.3); Immature Granulocyte Absolute 0.03 K/mm3 (0.00-0.00); Immature Granulocyte Percent A 0.3 % (0.0-0.0); Lymphocytes Absolute Auto 2.15 K/mm3 (1.10-4.50); Lymphocytes Percent Auto 23.7 % (18.0-42.0); Mean Corpuscular HGB Conc 33.9 g/dL (32.0-36.0); Mean Corpuscular Hemoglobin 30.7 pg (27.0-31.0); Mean Corpuscular Volume 90.7 fL (78.0-102.0); Mean Platelet Volume 10.1 fl (8.7-11.0); Monocytes Absolute Auto 0.68 K/mm3 (0.10-0.90); Monocytes Percent Auto 7.5 % (2.0-11.0); Neutrophils Absolute Auto 5.6 K/mm3 (1.7-7.2); Platelet Count Result 305 K/mm3 (150-420); Red Cell Distribution Width 13.2 % (11.6-14.4); White Blood Count 9.1 K/mm3 (4.8-10.8)
[2023-04-22 05:55] LABS: Alanine Aminotransferase 30 U/L (16-63); Albumin Level 3.1 g/dL (3.4-5.0); Alkaline Phosphatase 88 U/L (46-116); Anion Gap 6 mmol/L (8-16); Aspartate Amino Transferase 13 U/L (15-37); Bilirubin,Total 0.5 mg/dL (0.00-1.00); Blood Urea Nitrogen 24 mg/dL (7-18); Calcium 8.7 mg/dL (8.5-10.1); Carbon Dioxide 37 mmol/L (21-32); Chloride 98 mmol/L (98-108); Estimated CRCL calculation 54 ml/min; Estimated Glomerular Filt Rate 47; Glucose 174 mg/dL (70-99); Magnesium 1.8 mg/dL (1.8-2.4); Osmolality Calculated 300 mOsm/kg (285-295); Potassium 2.8 mmol/L (3.5-5.1); Sodium 141 mmol/L (136-145); Total Protein 7.1 g/dL (6.4-8.2)
[2023-04-22 07:57] LABS: Glucose Point of Care 197 mg/dl (65-105)
[2023-04-22 08:00] VITALS: BP 150/65; PULSE 68; RESP 14; TEMP 36.4; O2SAT 98
[2023-04-22] MEDS: CHOLECALCIFEROL 1,000 UNITS TABLET 2000 UNITS PO (09:11)
[2023-04-22] MEDS: POTASSIUM CHLORIDE 20 MEQ ER TABLET 40 MEQ PO (09:13)
[2023-04-22] MEDS: metOLazone 2.5 MG TABLET 5 MG PO (09:14)
[2023-04-22] MEDS: CLOPIDOGREL BISULFATE 75 MG TABLET PO (09:14)
[2023-04-22] MEDS: ASCORBIC ACID 500 MG TABLET 1000 MG PO (09:14)
[2023-04-22] MEDS: ESCITALOPRAM OXALATE 10 MG TABLET 20 MG PO (09:14)
[2023-04-22] MEDS: ASPIRIN 81 MG ENTERIC TABLET PO (09:14)
[2023-04-22 09:15] VITALS: PULSE 72
[2023-04-22] MEDS: METOPROLOL SUCCINATE EXT REL 50 MG TABCR PO (09:15)
[2023-04-22] MEDS: THERAPEUTIC MULTIVITAMINS/MINERALS TAB (*BKC) 1 TABLET PO (09:15)
[2023-04-22] MEDS: glipiZIDE XL 5 MG TABCR PO ×2 (09:42→17:41)
--- NOTE | 2023-04-22 11:14 | P.PNCROSS_ITS ---
Event Note Event Note Event Note: Patient had laboratories this a.m. and potassium was noted to be 2.8. Supple mentation has been ordered and a chemistry panel will be drawn tomorrow to ensure that potassium has returned to normal. If potassium remains low, further supplementation can be given.
[2023-04-22 11:38] LABS: Glucose Point of Care 205 mg/dl (65-105)
[2023-04-22] MEDS: INSULIN HUMAN LISPRO (*BKC) 1,000 UNITS/10 ML VIAL SUB-Q (11:51)
[2023-04-22] MEDS: POTASSIUM CHLORIDE 20 MEQ ER TABLET PO (12:51)
[2023-04-22 16:00] VITALS: BP 132/58; PULSE 61; RESP 17; TEMP 36.2; O2SAT 94
[2023-04-22 16:31] LABS: Glucose Point of Care 142 mg/dl (65-105)
[2023-04-22 20:00] VITALS: PULSE 61; RESP 17; O2SAT 94
[2023-04-22] MEDS: ATORVASTATIN 40 MG TABLET PO (20:26)
[2023-04-22] MEDS: DOCUSATE SODIUM 100 MG CAPSULE PO (20:26)
[2023-04-22 20:31] LABS: Glucose Point of Care 220 mg/dl (65-105)
[2023-04-23] VITALS: BP 138/59; PULSE 63; RESP 17; TEMP 35.9; O2SAT 97
[2023-04-23 05:43] LABS: Anion Gap 5 mmol/L (8-16); Blood Urea Nitrogen 22 mg/dL (7-18); Calcium 8.7 mg/dL (8.5-10.1); Carbon Dioxide 37 mmol/L (21-32); Chloride 99 mmol/L (98-108); Estimated CRCL calculation 57 ml/min; Estimated Glomerular Filt Rate 49; Glucose 179 mg/dL (70-99); Osmolality Calculated 299 mOsm/kg (285-295); Potassium 2.8 mmol/L (3.5-5.1); Sodium 141 mmol/L (136-145)
[2023-04-23 07:45] LABS: Glucose Point of Care 180 mg/dl (65-105)
[2023-04-23 07:50] VITALS: BP 138/64; PULSE 67; RESP 16; TEMP 36.6; O2SAT 97
[2023-04-23] MEDS: ASCORBIC ACID 500 MG TABLET 1000 MG PO (08:21)
[2023-04-23] MEDS: THERAPEUTIC MULTIVITAMINS/MINERALS TAB (*BKC) 1 TABLET PO (08:22)
[2023-04-23] MEDS: CHOLECALCIFEROL 1,000 UNITS TABLET 2000 UNITS PO (08:22)
[2023-04-23] MEDS: POTASSIUM CHLORIDE 20 MEQ ER TABLET PO (08:23)
[2023-04-23] MEDS: glipiZIDE XL 5 MG TABCR PO (08:23)
[2023-04-23] MEDS: CLOPIDOGREL BISULFATE 75 MG TABLET PO (08:23)
[2023-04-23 08:24] VITALS: PULSE 81
[2023-04-23] MEDS: METOPROLOL SUCCINATE EXT REL 50 MG TABCR PO (08:24)
[2023-04-23] MEDS: ESCITALOPRAM OXALATE 10 MG TABLET 20 MG PO (08:24)
[2023-04-23] MEDS: metOLazone 2.5 MG TABLET 5 MG PO (08:25)
[2023-04-23] MEDS: DOCUSATE SODIUM 100 MG CAPSULE PO (08:25)
[2023-04-23] MEDS: ASPIRIN 81 MG ENTERIC TABLET PO (08:25)
--- NOTE | 2023-04-23 10:07 | PC.NURSE ---
Layout Former initiated 22g IV R hand with attempts x 1 to administer K rider.
[2023-04-23] MEDS: KCL 20 MEQ/SW 100 ML 100 ML 50 MEQ IVPB (11:10)
[2023-04-23] MEDS: SODIUM CHLORIDE 0.9% IV 250 ML 30 ML IV CONT (11:11)
[2023-04-23 11:30] LABS: Glucose Point of Care 210 mg/dl (65-105)
[2023-04-23] MEDS: INSULIN HUMAN LISPRO (*BKC) 1,000 UNITS/10 ML VIAL SUB-Q (12:08)
[2023-04-23 14:13] LABS: Potassium 3.7 mmol/L (3.5-5.1)
--- NOTE | 2023-04-23 15:20 | PM.DS ---
DS: Admitting Diagnosis Discharge Date 04/23/2023 Admitting Diagnosis Swing, Post Stroke, REhab, Weakness DS: Discharge Diagnosis Discharge Diagnosis (1) (HFpEF) heart failure with preserved ejection fraction: Code(s): I50.30 - Unspecified diastolic (congestive) heart failure Status: Acute Assessment and Plan: Follow up with Cardiology post Stroke continue wit ASA and Atorvastin follow up with PCP (2) Gait disturbance, post-stroke: Code(s): I69.398 - Other sequelae of cerebral infarction; R26.9 - Unspecified abnormalities of gait and mobility Status: Acute Assessment and Plan[facility]/OT improving exercise given for home exercise you cotinue to improve (3) Peripheral vision loss: Code(s): H53.459 - Other localized visual field defect, unspecified eye Status: Acute Assessment and Plan: Follow up with outpatient Ophthalmology (4) Acute stroke due to ischemia: Code(s): I63.9 - Cerebral infarction, unspecified Status: Acute Assessment and Plan: continue with ASA and atorvastatin you need to follow up with the director [place] sales, neurologist and ophthalmology (5) CVA (cerebral vascular accident): Code(s): I63.9 - Cerebral infarction, unspecified Status: Acute Assessment and Plan: Post Cerebral infarct SEE #4 monitor your blood pressure DS: Summary Hospital Course Reason for hospitalization: Cerebral Infarct Hospital Course: This is a 67 year old that was admitted into Swing bed Post Cerebral Infarct for physical therapy. Patient was assess by Neurology and started on ASA and Atorvastatin. Mr. Adam has showed great improvement and is able to discharge home safely. His vitals has remained stable and his labs has improved. He required while here some oral potassium due to hypokalemia currently stable at Potassium 3.7. Patient is in need of a PCP and Dr. Bush has graciously agreed to take patient and see him sooner as well as the have given the order for outpatient therapy. Mr. Liriano will need to ensure that his blood sugars remain stable as he is a Type II diabetic and he has been placed on ASA and antiplatelet. Mr. Adam is eating and drinking without difficulties he has remained a febrile and has minimal residual to thte stroke although he still has vision blurriness and see things on the left side at times. At this time he will discharge home with his . Time Spent with Patient Time attestation: Total time spent providing and/or coordinating discharge services: DS: Data Data Completed and Pending Labs on day of discharge: Labs from last 24 hours 04/23/23 04/23/23 04/23/23 13:55 11:28 07:40 Sodium Potassium 3.7 Chloride Carbon Dioxide Anion Gap BUN Creatinine Estim Creat Clear Calc Estimated GFR Glucose POC Capillary Glucose 210 H 180 H Calculated Osmolality Calcium 04/23/23 04/22/23 04/22/23 05:08 20:25 16:25 Sodium 141 Potassium 2.8 L Chloride 99 Carbon Dioxide 37 H Anion Gap 5 L BUN 22 H Creatinine 1.43 H Estim Creat Clear Calc 57 Estimated GFR 49 L Glucose 179 H POC Capillary Glucose 220 H 142 H Calculated Osmolality 299 H Calcium 8.7 Discharge Plan Discharge Attending physician on discharge: Luis Castillo Consulting providers: Porfirio Marquez; Aliya Dee; Chapin Kaplan Discharging Clinician: Chapin Kaplan Anticipated Discharge Date/Time: 04/23/23 10:59 Patient Disposition: Home, Self-Care Activity: may shower and as tolerated Diet: diabetic Wound Care Instructions: follow printed instructions Discharge Instructions: Follow up With dr. Bush on Apr 23 You are need of Outpatient physical therapy. Have labs drawn next week and result sent to Dr. Bush office Patient Instructions: Antibiotic Form, Ischemic S
--- NOTE | 2023-04-28 12:41 | PC.NURSE ---
Spouse states they received and understood the discharge instructions. Spouse states they were awesome, every girl on that floor deserves a raise .
== END 2023-04-23 16:00 | disposition home or self-care (01) | DRG 57 ==
PROVIDERS: Nurse Practitioner; Nurse Practitioner Adult Health; Nurse Practitioner Family; Admitting Provider Internal Medicine; PCP Internal Medicine; Visit Provider Internal Medicine
DX: I69.398 Other sequelae of cerebral infarction (principal); R26.89 Other abnormalities of gait and mobility; H54.7 Unspecified visual loss; E87.6 Hypokalemia; E78.5 Hyperlipidemia, unspecified; I10 Essential (primary) hypertension; E11.9 Type 2 diabetes mellitus without complications; F32.A Depression, unspecified; Z79.82 Long term (current) use of aspirin; Z87.891 Personal history of nicotine dependence
CPT/HCPCS: 36415; 80048; 80053; 80061; 82948; 83735; 84132; 85025; 97110; 97112; 97161; 97165; 97530; 97535; A9270; J1815; J3480; J7050

== ENCOUNTER 2023-04-27 13:40 | Outpatient (RCR) | payer BC, SELFPAY ==
--- NOTE | 2023-04-28 15:45 | PTOPEVAL1 ---
Assessment and note entered by JT File, PT Evaluation Information Assessment Status Evaluation Diagnosis abnormal gait and mobility Onset April 06, 2023 Subjective Information Patient reports having a stroke on April 06, he has since been in a swing bed in the hospital until last Wednesday. Patient reports no pain present , however his vision is impaired especially on the L. He notes he has been able to move well throughout his house, primarily using a FWW to navigate. His bathroom is now equipped with grab bars and he has not had difficulty getting in/out of the shower. He has been using resistance bands and ankle weights at home to work on his strength. He notes his legs were sore this morning as he walked for a long distance at [facility] yesterday. Reported Pain Level Pain Score 0: Self Report Assessment PT Clinical Summary Mr. Adam is a 67 y/o male who presents to skilled therapy to address abnormalities of gait and mobility. He demonstrates limitations in LE strength, impacting his ability to perform functional activities such as stair climbing and walking community distances. Patient is a high fall risk per the [place] and primarily uses a FWW for ambulation. Patient would benefit from skilled PT to improve balance, safety with ambulation, endurance, and strength to allow for him to perform daily activities throughout house and in community independently. Plan of Care Interventions Gait Training,Neuro Re-education,Patient/Caregiver Educati,Therapeutic Activities,Therapeutic Exercise PT Services Indicated Yes Treatment Frequency and 3x/week for 12 visits Duration These treatments will address the objective and functional deficits as defined above. The patient will be advanced safely and appropriately in order for the patient to progress towards his/her prior level of function. Additional exercises will be introduced and as well as a comprehensive home exercise program upon discharge, if needed, ?to ensure carryover of functional gains achieved in the clinic. This treatment plan has been reviewed and agreement upon by the patient.
--- NOTE | 2023-04-28 15:45 | OPREHPOC ---
Outpatient Therapy Plan of Care This is a Multidisciplinary Plan of Care that may contain components documented by all disciplines (PT, OT, and ST.) PT Problem 1 PT Problem #1 Knowledge Deficit PT Goal 1 Goal 1. Pt to demonstrate independence with HEP to improve progress made in PT. Target Visit 6 PT Problem 2 PT Problem #2 Impaired Strength PT Goal 1 Goal 1. Patient to improve B overall LE strength to 4+/ 5 or greater to improve patient's ability to ascend a flight of stairs. Target Visit 12 PT Problem 3 PT Problem #3 Impaired Balance PT Goal 1 Goal 1. Patient to improve Tinetti score to at least 23 /28 to decrease patient's fall risk. Target Visit 12 PT Problem 4 PT Problem #4 Impaired Endurance PT Goal 1 Goal 1. Patient to increase distance ambulated during 6 Minute Walk Test to 900 feet to improve patient's endurance for walking in grocery store. Target Visit 12 PT Problem 5 PT Problem #5 Impaired Functional Mobil PT Goal 1 Goal 1. Pt to report walking w/ LRAD for greater than 15 minutes without a rest break and no running into objects on the L side to allow for patient to walk in neighborhood. Target Visit 12
--- NOTE | 2023-05-19 17:03 | OPREHPOC ---
Outpatient Therapy Plan of Care This is a Multidisciplinary Plan of Care that may contain components documented by all disciplines (PT, OT, and ST.) PT Problem 1 PT Problem #1 Knowledge Deficit PT Goal 1 Goal 1. Pt to demonstrate independence with HEP to improve progress made in PT. Target Visit 6 Progress Partially Met Comment continue to progress HEP PT Problem 2 PT Problem #2 Impaired Strength PT Goal 1 Goal 1. Patient to improve B overall LE strength to 4+/ 5 or greater to improve patient's ability to ascend a flight of stairs. Target Visit 12 Progress Partially Met Comment continue to address PT Problem 3 PT Problem #3 Impaired Balance PT Goal 1 Goal 1. Patient to improve Tinetti score to at least 23 /28 to decrease patient's fall risk. Target Visit 12 Progress Partially Met Comment continue to address PT Problem 4 PT Problem #4 Impaired Endurance PT Goal 1 Goal 1. Patient to increase distance ambulated during 6 Minute Walk Test to 900 feet to improve patient's endurance for walking in grocery store. Target Visit 12 Progress Partially Met Comment continue to address PT Problem 5 PT Problem #5 Impaired Functional Mobil PT Goal 1 Goal 1. Pt to report walking w/ LRAD for greater than 15 minutes without a rest break and no running into objects on the L side to allow for patient to walk in neighborhood. Target Visit 12 Progress Partially Met Comment continue to address
--- NOTE | 2023-05-19 17:03 | PTOPPROGNS ---
Assessment and note entered by JT File, PT Evaluation Information Assessment Status Progress Diagnosis abnormal gait and mobility Onset April 06, 2023 Subjective Information Patient reports he has been using a SPC since the previous PT session, and has not had any difficulty using this at home or outside. He notes he has not had any recent falls and feels like his balance has improved over the past few weeks. Assessment PT Clinical Summary Mr. Adam has attended 9 sessions of skilled PT to address gait and balance impairments, making good progress towards goals. Patient demonstrates improved times with 5 times sit to stand and TUG functional tests, as well as increased distance ambulated during 6 MWT this date. He continues to show limitations in LE strength, balance, and safety/visual awareness with ambulation. He has progressed to using a SPC in the R UE safely for ambulation. He is currently a moderate fall risk as assessed by the Tinnetti balance test. Appropriate to continue current POC for remaining 3 visits to address balance, strength, endurance, and functional mobility. Plan of Care Interventions Gait Training,Neuro Re-education,Patient/Caregiver Educati,Therapeutic Activities,Therapeutic Exercise PT Services Indicated Yes Treatment Frequency and continue current POC 3x/week for remaining 3 Duration visits per initial POC These treatments will address the objective and functional deficits as defined above. The patient will be advanced safely and appropriately in order for the patient to progress towards his/her prior level of function. Additional exercises will be introduced and as well as a comprehensive home exercise program upon discharge, if needed, ?to ensure carryover of functional gains achieved in the clinic. This treatment plan has been reviewed and agreement upon by the patient.
--- NOTE | 2023-06-04 08:08 | OPREHPOC ---
Outpatient Therapy Plan of Care This is a Multidisciplinary Plan of Care that may contain components documented by all disciplines (PT, OT, and ST.) PT Problem 1 PT Problem #1 Knowledge Deficit PT Goal 1 Goal 1. Pt to demonstrate independence with HEP to improve progress made in PT. Target Visit 6 Progress Met Comment goal met, continue to progress HEP PT Problem 2 PT Problem #2 Impaired Strength PT Goal 1 Goal 1. Patient to improve B overall LE strength to 5/5 or greater to improve patient's ability to ascend a flight of stairs. Target Visit 18 Progress Partially Met Comment goal met, adjusted to continue strengthening activities PT Problem 3 PT Problem #3 Impaired Balance PT Goal 1 Goal 1. Patient to improve Tinetti score to at least 23 /28 to decrease patient's fall risk. Target Visit 18 Progress Partially Met Comment Tinetti score improved however goal not yet met, continue to address PT Problem 4 PT Problem #4 Impaired Endurance PT Goal 1 Goal 1. Patient to increase distance ambulated during 6 Minute Walk Test to 900 feet to improve patient's endurance for walking in grocery store. Target Visit 18 Progress Partially Met Comment continue to address PT Problem 5 PT Problem #5 Impaired Functional Mobil PT Goal 1 Goal 1. Pt to report walking w/ LRAD for greater than 15 minutes without a rest break and no running into objects on the L side to allow for patient to walk in neighborhood. Target Visit 18 Progress Partially Met Comment continue to address
--- NOTE | 2023-06-04 08:09 | PTOPREEVAL ---
Assessment and note entered by JT File, PT Evaluation Information Assessment Status Re-evaluation Diagnosis abnormal gait and mobility Onset April 06, 2023 Subjective Information Patient reports that Wednesday at home following his PT visit, he missed a chair on the left while sitting down and fell onto his bottom on the floor . Since the fall he has had some pain present in the L knee. He notes that walking at home and outside has been easier since starting PT and transitioning to using a cane. Patient notes he visited the field crop harvest worker yesterday, who stated that his vision will continue to be limited on the L and cannot be improved with any surgeries. Reported Pain Level Pain Score 0: Self Report Assessment PT Clinical Summary Mr. Adam has attended 12 sessions of skilled PT to address gait and balance impairments. This date patient demonstrates improved LE strength from last assessment. Patient reports a fall two days ago that has caused some bruising and pain along the L knee. Patient has increased time with 5 xSTS and TUG test today, as well as decreasing distance ambulating during 6 MWT. Patient reports pain in the knee with these tests likely limiting his performance. He continues to be a fall risk as assessed by the Tinetti. He does report improved ability to walk in home and on uneven surfaces such as his yard. Appropriate to continue skilled PT to address remaining strength, gait, and balance impairments to improve patient's safety in home and community. Plan of Care Interventions Gait Training,Neuro Re-education,Patient/Caregiver Educati,Therapeutic Activities,Therapeutic Exercise PT Services Indicated Yes Treatment Frequency and continue POC 2x/week for additional 6 visits Duration These treatments will address the objective and functional deficits as defined above. The patient will be advanced safely and appropriately in order for the patient to progress towards his/her prior level of function. Additional exercises will be introduced and as well as a comprehensive home exercise program upon discharge, if needed, ?to ensure carryover of functional gains achieved in the clinic. This treatment plan has been reviewed and agreement upon by the patient.
--- NOTE | 2023-06-18 15:23 | OPREHPOC ---
Outpatient Therapy Plan of Care This is a Multidisciplinary Plan of Care that may contain components documented by all disciplines (PT, OT, and ST.) PT Problem 1 PT Problem #1 Knowledge Deficit PT Goal 1 Goal 1. Pt to demonstrate independence with HEP to improve progress made in PT. Target Visit 6 Progress Met PT Problem 2 PT Problem #2 Impaired Strength PT Goal 1 Goal 1. Patient to improve B overall LE strength to 5/5 or greater to improve patient's ability to ascend a flight of stairs. Target Visit 18 Progress Met PT Problem 3 PT Problem #3 Impaired Balance PT Goal 1 Goal 1. Patient to improve Tinetti score to at least 23 /28 to decrease patient's fall risk. Target Visit 18 Progress Met PT Problem 4 PT Problem #4 Impaired Endurance PT Goal 1 Goal 1. Patient to increase distance ambulated during 6 Minute Walk Test to 900 feet to improve patient's endurance for walking in grocery store. Target Visit 18 Progress Met PT Problem 5 PT Problem #5 Impaired Functional Mobil PT Goal 1 Goal 1. Pt to report walking w/ LRAD for greater than 15 minutes without a rest break and no running into objects on the L side to allow for patient to walk in neighborhood. Target Visit 18 Progress Not Met
--- NOTE | 2023-06-18 15:24 | PTOPDC ---
Assessment and note entered by JT File, PT Evaluation Information Assessment Status Re-evaluation Diagnosis abnormal gait and mobility Onset April 06, 2023 Subjective Information patient reports he has no pain today. he reports he has had no falls since his last therapy appointment. he and his are going [facility] to continue to walk and exercise in the winter months. Reported Pain Level Pain Score 0: Self Report Assessment PT Clinical Summary mr. marcum presents to skilled PT for his 18th skilled therapy visit today. he has met all goals for skilled PT as of this date, except for not running into objects on the L side. 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 he will DC skilled PT this date, and continue with HEP with his at home. Plan of Care PT Services Indicated Yes
== END 2023-06-18 16:58 | disposition home or self-care (01) ==
LOC: CHSPT 13:40
PROVIDERS: PCP Family Medicine; Visit Provider Nurse Practitioner Family
DX: I69.398 Other sequelae of cerebral infarction (principal); I63.9 Cerebral infarction, unspecified; R26.9 Unspecified abnormalities of gait and mobility
CPT/HCPCS: 97110; 97112; 97116; 97161; 97530; 97750

== ENCOUNTER 2023-08-10 13:00 | Outpatient (RCR) | payer BC, SELFPAY ==
[2023-06-15 13:19] VITALS: BMI 34.5
[2023-06-15 14:24] VITALS: BMI 34.5
[2023-08-10 13:31] VITALS: BMI 34.2; BMI 34.5
== END 2023-09-06 09:19 | disposition home or self-care (01) ==
LOC: ANHDMC 13:00
PROVIDERS: PCP Family Medicine; Visit Provider Internal Medicine
DX: E11.9 Type 2 diabetes mellitus without complications (principal); Z71.3 Dietary counseling and surveillance
CPT/HCPCS: 97802; 97803

== ENCOUNTER 2024-03-22 14:32 | Observation (INO) | payer BC, SELFPAY ==
[2024-03-22] VITALS (32 sets, daily range): BP systolic 102–150; BP diastolic 53–84; PULSE 80–93; RESP 16–20; TEMP 36.4–36.9; O2SAT 93–100; BMI 34.4
--- NOTE | ~2024-03-22 | XR_ITS ---
XR chest 2V Ordering provider: Maeve Webb APRN History: 68 years Male with . shortness of breath . Comparison: None. FINDINGS: MEDIASTINUM: The cardiac silhouette is not enlarged. LUNGS: No infiltrates, effusions or pneumothorax. OTHER: No free air under the diaphragm. Degenerative changes of the spine. IMPRESSION: No acute cardiopulmonary pathology. Reviewed, dictated and finalized at location A.
--- NOTE | ~2024-03-22 | CT_ITS ---
EXAMINATION: CTA brain carotid DATE: 03/23/2024 13:37 INDICATION: Syncope. Transient ischemic attack. TECHNIQUE: Computed tomographic angiography (CTA) of the head was performed without and with 100 mL O mnipaque-350 intravenous contrast. CTA of the neck was performed with intravenous contrast. Automated exposure control and iterative reconstruction technique were employed. The dose-length product was 1 802.69 mGy-cm. Maximum intensity projection and volume rendered 3D-reconstructions were created by e technologist on a separate workstation. COMPARISON: Head CT 03/22/24 FINDINGS: HEAD CTA: There are old infarcts in the occipital lobes, right worse than left. There are scattered a reas of low attenuation in the cerebral white matter, which is within normal limits for the patient's age. There is no intracranial hemorrhage, acute infarction, or abnormal intracranial mass lesion. e ventricles are normal in size. There is mild mucosal thickening in the paranasal sinuses. The orbit s are normal. The mastoid air cells are normal. Right vertebral artery is dominant. There is no signi ficant stenosis of basilar artery or the posterior cerebral arteries. There is no significant stenosi s of the intracranial internal carotid arteries or anterior or middle cerebral arteries. Anterior com municating artery is normal. The posterior communicating arteries are normal. There is no aneurysm. NECK CTA: There are no pathologically enlarged lymph nodes. There is no significant stenosis of the v ertebral arteries. There is plaque in the proximal internal carotid arteries. There is 0% stenosis of the proximal right internal carotid artery relative to normal distal artery lumen diameter (NASCET c riteria). There is 0% stenosis of the proximal left internal carotid artery relative to normal distal artery lumen diameter. There is severe cervical spondylosis. IMPRESSION: 1. Old infarcts in the occipital lobes, right worse than left. 2. No aneurysm or significant intracranial arterial stenosis. 3. 0% stenosis of the proximal internal carotid arteries relative to normal distal artery lumen diame ters (NASCET criteria). Reviewed, dictated and finalized at location E. IMPRESSION: 1. Old infarcts in the occipital lobes, right worse than left. 2. No aneurysm or significant intracranial arterial stenosis. 3. 0% stenosis of the proximal internal carotid arteries relative to normal dis silver artery lumen diameters (NASCET criteria).
--- NOTE | ~2024-03-22 | CT_ITS ---
CT brain wo con Ordering provider: Luis Clancy MD History: 68 years Male with . Prior CVA, multiple syncopal episodes . Comparison: April 07, 2023 Ordering provider: Luis Clancy MD History: 68 years Male with . Prior CVA, multiple syncopal episodes . Comparison: None. Technique: CT of the head without contrast. Radiation reduction technique utilized. DLP is 605.33 mGy. FINDINGS: BRAIN PARENCHYMA AND CSF SPACES: Encephalomalacia in the medial aspect of the right occipital lobe. N o midline shift, mass effect or hemorrhage. The brain parenchyma and CSF spaces are otherwise normal . VISUALIZED PARANASAL SINUSES: Well aerated. MASTOIDS: Well aerated. BONES: The bones appear intact. SOFT TISSUES: Visualized nasopharynx is normal. Superficial soft tissues are normal. IMPRESSION: No acute intracranial findings. Technique: CT of the head without contrast. FINDINGS: BRAIN PARENCHYMA AND CSF SPACES: No midline shift, mass effect or hemorrhage. The brain parenchyma a nd CSF spaces are otherwise normal. VISUALIZED PARANASAL SINUSES: Well aerated. MASTOIDS: Well aerated. BONES: The bones appear intact. SOFT TISSUES: Visualized nasopharynx is normal. Superficial soft tissues are normal. IMPRESSION: No acute intracranial findings. Reviewed, dictated and finalized at location A. IMPRESSION: No acute intracranial findings. Technique: CT of the head without contrast. FINDINGS: BRAIN PARENCHYMA AND CSF SPACES: No midline shift, mass effect or hemorrhage. The brain parenchyma and CSF spaces are otherwise normal. VISUALIZED PARANASAL SINUSES: Well aerated. MASTOIDS: Well aerated. BONES: The bones appear intact. SOFT TISSUES: Visualized nasopharynx is normal. Superficial soft tissues are n ormal.
--- NOTE | 2024-03-22 15:14 | ED.GENADULT ---
HPI - General Adult General Chief complaint: Syncope <Maeve Clark January, [employer] - Last Filed: 03/22/24 15:18> Stated complaint: black outs <Maeve Clark January, [employer] - Last Filed: 03/22/24 15:18> Time Seen by Provider: 03/22/24 15:14 <Maeve Clark January, [employer] - Last Filed: 03/22/24 15:18> Focused HPI: Constantino Adam is a 68 y/o male who presents today with reports of having a stroke in March - the past few months December- now he has been having episodes of passing out. He states he starts to get dizzy a couple times he has fallen - states he has fallen 2-3 times He states that now the episodes are become more frequent. Denies chest pain/ Denies palpitations -- states he gets a lost look in his face GENERAL: Well-appearing, well-nourished, and in no acute distress. HEAD: Normocephalic, atraumatic. CHEST: Clear to auscultation. ?No respiratory distress. HEART: Regular rate and rhythm.? NEURO: ?Alert and oriented x3. Patient screened in triage and initial orders placed.? ?Additional care and disposition to be based upon?diagnostic testing and treatment. <Maeve Clark January, - Last Filed: 03/22/24 15:18> History of Present Illness HPI narrative: Patient is a 68-year-old gentleman who presents emergency department with chief complaint of syncope. Patient reports that he had a stroke about 1 year ago and started having intermittent episodes becoming unresponsive the patient reports that they were sporadic and now over the last several weeks it has happened within much more frequent the patient reports that he has had several recently including on his way to the emergency department and in the lobby the emergency department patient reports that he feels as though he is going to pass out and then has a lost look on his face and the patient reports that he then becomes unresponsive the patient reports he was able to sit down before he fell but has had some falls when these episodes have occurred. The patient reports no pain denies chest pain denies shortness of breath reports that he currently has no new focal neurological deficits <Luis Clancy MD - Last Filed: 03/22/24 18:17> Related Data Home medications: Home Medications Medication Instructions Recorded Confirmed ascorbic acid (vitamin C) 1,000 mg 500 mg PO DAILY 04/07/23 12/15/23 tablet cholecalciferol (vitamin D3) 50 2,000 unit PO DAILY 04/07/23 12/15/23 mcg (2,000 unit) tablet (Vitamin D3) [id number]-adv C-Mn 500 1 cap PO DAILY 04/07/23 12/15/23 mg-400 mg capsule (Glucosamine Chondroitin Maximum Strength) metoprolol succinate 50 mg 50 mg PO DAILY 04/07/23 12/15/23 tablet,extended release 24 hr multivit with minerals-iron 18 1 tablet PO DAILY 04/07/23 12/15/23 mg-folic ac 400 mcg-vit K 25 mcg tablet (Adults Multivitamin) potassium chloride 20 mEq 20 meq PO DAILY 04/07/23 12/15/23 tablet,extended release dupilumab 300 mg/2 mL subcutaneous 300 mg subcut [id number] 04/08/23 12/15/23 syringe (Dupixent) zinc acetate 25 mg (zinc) capsule 25 mg PO DAILY 06/22/23 12/15/23 glipizide 5 mg tablet, extended 5 mg PO BID 12/15/23 12/15/23 release 24 hr aspirin 325 mg tablet 325 mg 03/22/24 <Maeve Webb, SAMMY - Last Filed: 03/22/24 15:18> Allergies/adverse reactions: Allergies Allergy/AdvReac Type Severity Reaction Status Date / Time No Known Allergies Allergy Verified 12/15/23 08:19 <Maeve Webb APRN - Last Filed: 03/22/24 15:18> Review of Systems Review of Systems: A 10 system review of systems was completed on the patient and is negative except for what is stated in the HPI. Nursing and ancillary documentation was reviewed. <Luis Clancy MD - Last Filed: 03/22/24 18:17> [facility] Past Medical History Medical History: Medical History Acute stroke due to ischemia Depression DM2 (diabetes mellitus, type 2) History of
--- NOTE | 2024-03-22 15:18 | ECG_ITS ---
Test Date: 2024-03-22 15:58:23 Measurements Intervals [place] Rate: 85 P: 88 HI: 231 QRS: 84 QRSD: 153 T: 70 QT: 453 QTc: 539 Interpretive Statements SINUS RHYTHM WITH FIRST DEGREE AV BLOCK ATRIAL PREMATURE COMPLEXES RIGHT BUNDLE BRANCH BLOCK BASELINE ARTIFACT- I, II, III, AVR, AVL, AVF, V1-V6 ABNORMAL ECG No previous ECG available for comparison Electronically Signed On 03-22-2024 17:04:38 CDT by Rolan Strange D.O.
[2024-03-22 16:05] LABS: Basophils Absolute Auto 0.1 K/mm3 (0.0-0.1); Basophils Percent Auto 0.9 % (0.2-1.2); Eosinophils Absolute Auto 0.3 K/mm3 (0-0.3); Eosinophils Percent Auto 2.4 % (0-4.4); Hemoglobin 13.9 g/dL (14.0-18.0); Immature Granulocyte Absolute 0.05 K/mm3 (0.00-0.031); Immature Granulocyte Percent A 0.5 % (0-0.5); Lymphocytes Absolute Auto 1.57 K/mm3 (0.9-3.2); Lymphocytes Percent Auto 15.3 % (18.3-44.2); Mean Corpuscular HGB Conc 34.8 g/dl (32-36); Mean Corpuscular Hemoglobin 30.5 pg (26-34); Mean Corpuscular Volume 87.7 fl (80-100); Mean Platelet Volume 9.7 fl (7.4-10.4); Monocytes Absolute Auto 0.7 K/mm3 (0.1-0.6); Monocytes Percent Auto 7.2 % (2.6-8.5); Neutrophils Absolute Auto 7.6 K/mm3 (1.3-6.7); Neutrophils Percent Auto 73.7 % (45.5-73.1); Platelet Count Result 291 k/mm3 (150-375); Red Blood Count 4.56 M/mm3 (4.6-6.20); Red Cell Distribution Width 14.2 % (11.5-14.5); White Blood Count 10.3 K/mm3 (4.5-10.0)
[2024-03-22 16:17] LABS: Lactic Acid Reflex 1.5 mmol/L (0.7-2.0)
[2024-03-22 16:19] LABS: Alanine Aminotransferase 23 U/L (6-50); Albumin Level 4.3 g/dL (3.5-5.1); Alkaline Phosphatase 80 U/L (38-126); Anion Gap 8 mmol/L (4-12); Aspartate Amino Transferase 35 U/L (17-59); Bilirubin,Total 0.8 mg/dL (0.2-1.3); Blood Urea Nitrogen 33 mg/dL (9-20); Carbon Dioxide 33 mmol/L (22-30); Chloride 96 mmol/L (98-107); Estimated CRCL calculation 59 ml/min; Estimated Glomerular Filt Rate 55; Glucose 152 mg/dL (65-110); Potassium 2.7 mmol/L (3.4-5.0); Sodium 137 mmol/L (137-145)
[2024-03-22 16:28] LABS: Troponin I 0.018 ng/mL (0.000-0.034)
--- NOTE | 2024-03-22 16:33 | PC.NURSE ---
Patient has a history of a stroke in March 2023. for the last couple of months patient and family state that he has been having episodes of getting a blank look and falling over. These episodes have increased in frequency. patient denies any aura or warning prior to the episodes but does feel woozy, weak and almost dizzy during the episodes the patients blood sugar is normal and patient denies hitting head too hard when he has fallen. patient a/o x 4. patient has a daughter that has a seizure history.
[2024-03-22] MEDS: POTASSIUM CHLORIDE 20 MEQ PACKET (FOR LIQUID) 40 MEQ PO (18:02)
[2024-03-22] MEDS: KCL 20 MEQ/SW 100 ML 100 ML 50 MEQ IVPB (18:03)
[2024-03-22 18:40] LABS: NT Pro B Type Natriuretic Pept 497 pg/mL (19.9-100)
--- NOTE | 2024-03-22 18:40 | PC.NURSE ---
Pt hand off given to CHRISTY Sullivan in IMU.
--- NOTE | 2024-03-22 19:38 | ADMGEN ---
This patient, Constantino Adam, was admitted to IMU Room 213-01. Patient/family oriented to hospital policies and general routines including ID bracelet, bed and alarms, visiting hours, pain management, procedures, bathroom and other care routines, personal items, smoking policy, room service/diet, and visiting hours. Information on how to activate the Rapid Response Team has been discussed. Patient/Family are encouraged to report perceived risks to care and to ask questions if they do not understand what they are told or what they should do.
[2024-03-22 21:26] LABS: Troponin I 0.019 ng/mL (0.000-0.034)
[2024-03-22 21:55] LABS: Appearance Urine Clear (Clear); Bacteria Urine None Seen /hpf; Bilirubin Urine Negative (Negative); Blood Urine Negative (Negative); Color Urine Yellow (Yellow); Glucose Urine UA 3+ mg/dL (Negative); Ketones Urine Negative (Negative); Leukocyte Esterase Ur Negative LEU/UL (Negative); Nitrate Urine Negative (Negative); Non Pathogenic Casts 0-2; Protein Urine 1+ mg/dL (Negative); RBC Urine 0-2 /hpf (0-2); Specific Grav Ur 1.018 (1.001-1.035); Squamous Epithelial Cell Urine None Seen /hpf (Few); Urobilinogen Urine 0.2 mg/dL (<2.0); WBC Urine 0-5 /hpf (0-3)
[2024-03-22 22:02] LABS: Add Urine Microscopic? YES
[2024-03-23] VITALS (24 sets, daily range): BP systolic 93–133; BP diastolic 49–80; PULSE 74–85; RESP 15–20; TEMP 36.1–36.7; O2SAT 94–98
[2024-03-23 00:09] LABS: Anion Gap 11 mmol/L (4-12); Blood Urea Nitrogen 32 mg/dL (9-20); Calcium 9.4 mg/dL (8.4-10.2); Carbon Dioxide 29 mmol/L (22-30); Chloride 97 mmol/L (98-107); Estimated CRCL calculation 51 ml/min; Estimated Glomerular Filt Rate 47; Glucose 194 mg/dL (65-110); Potassium 3.2 mmol/L (3.4-5.0); Sodium 137 mmol/L (137-145)
[2024-03-23 00:19] LABS: Glucose Point of Care 130 mg/dl (65-105)
[2024-03-23] MEDS: KCL 20 MEQ/SW 100 ML 100 ML 50 MEQ IVPB (00:35)
[2024-03-23] MEDS: POTASSIUM CHLORIDE 20 MEQ ER TABLET 40 MEQ PO ×2 (00:35→06:49)
[2024-03-23] MEDS: ATORVASTATIN 40 MG TABLET PO ×2 (00:35→20:58)
--- NOTE | 2024-03-23 00:42 | PM.IMHP ---
H&P: HPI History of Present Illness Date/Time: 03/23/24 00:42 Chief Complaint: Syncope Narrative: This is a 68-year-old male with PMH obesity, heart failure preserved ejection fraction, CKD, history of CVA with residual vision deficit, [id number] diabetes mellitus, remote smoker now vaping, who has been having syncope for few weeks. He lives at home with his and she reports she has a blank stare rate before happens. Patient himself reports he can feel it coming on and everything becomes agree and then he faints. Sometimes he is able to catch himself. No seizure activity. Very brief loss of consciousness and no postictal state. [facility] evaluation demonstrates a CT head without acute intracranial findings, chest x-ray unremarkable for acute process, WBC 10.3, potassium 2.7, blood sugar 152, serum creatinine 1.3. Administer potassium 100 mEq Review of Systems Review of Systems: All systems reviewed & are unremarkable except as noted in HPI and below (Subjective) [facility] Past Medical History Medical History Acute stroke due to ischemia Depression DM2 (diabetes mellitus, type 2) History of pneumonia History of pneumothorax Hyperlipidemia Hypertension Surgical History Surgical History H/O elbow surgery History of chest tube placement Family History Family History Mother Liver cancer Diabetes mellitus Breast cancer Father Unknown family medical history Daughter Seizure Daughter Endometriosis Social History Social History Social History: The patient is and lives with his . He has 2 children. he is a former smoker. 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 He is a former smoker. His Albina is the durable power business attorney for healthcare Code status full code Smoking packs per day: 1 Smoking cigarettes per day: 20.0 Years smoked: 45 Smoking pack-years: 45.00 Smoking status: Former smoker Tobacco type: cigarettes and e-cigarettes/vaping Second hand tobacco smoke exposure: No Smoking end date: 09/20/09 Additional smoking assessment comments: Pt continues to vape. Alcohol intake: never Substance use: former Substance use type: marijuana Last use: 07/2023 Do You Feel Safe in your Home?: Yes Lack of Transportation: No Lack of Food: Never True Current Housing: I Have Housing Concerned About Future Housing: No Difficulty Paying Gas/Electric Bills: No Difficulty Paying for Meds: No Currently Unemployed: No Education: High School Diploma/GED Difficulty w/ Childcare or Family Care: No Spiritual care concerns: No Meds Home Medications and Allergies Home Medications Medication Instructions Recorded Confirmed Type ascorbic acid (vitamin C) 1,000 mg 500 mg PO DAILY 04/07/23 03/22/24 History tablet cholecalciferol (vitamin D3) 50 2,000 unit PO DAILY 04/07/23 03/22/24 History mcg (2,000 unit) tablet (Vitamin D3) metoprolol succinate 50 mg 50 mg PO DAILY 04/07/23 03/22/24 History tablet,extended release 24 hr multivit with minerals-iron 18 1 tablet PO DAILY 04/07/23 03/22/24 History mg-folic ac 400 mcg-vit K 25 mcg tablet (Adults Multivitamin) potassium chloride 20 mEq 20 meq PO DAILY 04/07/23 03/22/24 History tablet,extended release dupilumab 300 mg/2 mL subcutaneous 300 mg subcut [id number] 04/08/23 03/22/24 History syringe (Dupixent) blood sugar diagnostic (OneTouch #100 ea 04/23/23 03/22/24 Rx Verio test strips) zinc acetate 25 mg (zinc) capsule 30 mg PO DAILY 06/22/23 03/22/24 History blood-glucose sensor (FreeStyle #6 ea 08/31/23 03/22/24 Rx Elliot 3 Sensor device) empagliflozin 25 mg tablet 25 mg PO DAILY #90 tabs 08/31/23 03/22/24 Rx
[2024-03-23 04:39] LABS: Anion Gap 7 mmol/L (4-12); Blood Urea Nitrogen 31 mg/dL (9-20); Calcium 9.1 mg/dL (8.4-10.2); Carbon Dioxide 33 mmol/L (22-30); Chloride 98 mmol/L (98-107); Estimated CRCL calculation 48 ml/min; Estimated Glomerular Filt Rate 43; Glucose 120 mg/dL (65-110); Potassium 3.1 mmol/L (3.4-5.0); Sodium 138 mmol/L (137-145)
[2024-03-23 08:26] LABS: Glucose Point of Care 139 mg/dl (65-105)
[2024-03-23] MEDS: ASCORBIC ACID 500 MG TABLET PO (09:39)
[2024-03-23] MEDS: CHOLECALCIFEROL 1,000 UNITS TABLET 2000 UNITS PO (09:39)
[2024-03-23] MEDS: CLOPIDOGREL BISULFATE 75 MG TABLET PO (09:39)
[2024-03-23] MEDS: ESCITALOPRAM OXALATE 10 MG TABLET 20 MG PO (09:40)
[2024-03-23] MEDS: ASPIRIN 325 MG TABLET PO (09:40)
[2024-03-23] MEDS: POTASSIUM CHLORIDE 20 MEQ PACKET (FOR LIQUID) 40 MEQ PO (09:40)
[2024-03-23 11:56] LABS: Glucose Point of Care 113 mg/dl (65-105)
--- NOTE | 2024-03-23 14:18 | PM.EVENT ---
Event Note Event Note Event Note: Patient was seen by previous provider same day. Follow-up with patient in no acute distress, complaints or further syncopal episodes overnight. Patient did have a greater then 30 point drop in his orthostatic BP this am. Patient to be seen by neurology, HX of previous infarcts of the occipital lobes. Echo pending, cortisol level in the am to evaluate possible cause continue to hold metolazone and BB. Potassium 3.1 replenished follow-up labs in the am.
--- NOTE | 2024-03-23 15:53 | WPDNEURCNPN ---
Assessment and Plan Assessment and plan (1) Complex partial seizures: Code(s): G40.209 - Localization-related (focal) (partial) symptomatic epilepsy and epileptic syndromes with complex partial seizures, not intractable, without status epilepticus Status: Acute Assessment and Plan: It is suspected the patient may have partial complex seizures as a sequela of his stroke a year ago the differential diagnosis with cardiac arrhythmias (2) Status post CVA: Code(s): Z86.73 - Personal history of transient ischemic attack (TIA), and cerebral infarction without residual deficits Status: Acute Assessment and Plan: Patient has a persistent left homonymous hemianopsia and he does not drive I agree with the same. He is already on dual antiplatelets and statin which should continue. Also, suggest check his lipid profile. (3) Diabetes mellitus type 2 with complications: Code(s): E11.8 - Type 2 diabetes mellitus with unspecified complications Status: Acute Plan Clinically the differential diagnosis will be partial complex seizures versus cardiac arrhythmias of some sort and made further looking into. He is already on cardiac monitoring. An EEG is recommended. CT scan did not show any new abnormality. CT angiogram also did not show any large vessel occlusion. I would suggest to start him on Keppra 750 mg twice a day while we investigate him further. A prolonged cardiac monitoring should be considered. Echocardiogram is also recommended. We should check for lipid profile serum B12 folic acid level and thyroid function test vitamin-D level. Like to see him for follow-up in my office in 3 months time. I have explained these findings to the patient and the his and they are in agreement about this plan. Please feel free to call me if you have any questions in this regard. Consult date: 03/23/24 Time Seen: 15:53 Reason for consult: Staring spells, possible seizures HPI: Constantino Adam is a 68 year old male with history of stroke about a year ago leading to a left homonymous hemianopsia and diabetes mellitus her presented to the hospital having 3 spells where he would be either staring or unresponsive to verbal commands for several seconds thereafter either become limp and returned back to normal status. Hold spell does not last too long. According to his he started having the spells on and off since he had a stroke and but his became more concerned that he had 3 spells in the last 2 weeks. She has not seen any jerking of the body or any abnormal behavior after the spells. Record his after the stroke he was also seen by the neurosurgeon for what sounds like a suspected tear and the carotid artery which turns out to not be the case. He has history of diabetes mellitus for over 10 years and this has been fairly well controlled. He does get sleepy in the daytime he has not had any investigations for sleep apnea in the past. Review of Systems Constitutional: Constitutional: Denies chills, Denies fever(s) and Denies weight loss Eyes: Eyes: Denies diplopia and Reports loss of vision ENT: Denies dizziness, Denies hearing loss and Denies tinnitus Cardiovascular: Cardiovascular: Denies chest pain, Denies syncope and Denies dyspnea Respiratory: Respiratory: Denies cough, Denies dyspnea and Denies wheezing Gastrointestinal: Gastrointestinal: Denies abdominal pain, Denies change in bowel habits and Denies vomiting Genitourinary: Genitourinary: Denies urinary incontinence Musculoskeletal: Musculoskeletal: Denies arthralgias and Denies joint swelling Integumentary/Breasts: Skin/Breast: Denies new lesions and Denies rash Neurologic: Reports as per HPI, Denies dizziness, Denies syncope and Denies loss of vision Psychiatric: Psychiatric: Denies anxiety and Denies depression Endocrine: Endocrine: Denies cold intolerance and Denies heat intolerance Hematologic/Lymphatic: Hematologic/Lymphat
[2024-03-23] MEDS: HOME MEDICATION SUB-Q (16:00)
[2024-03-23 16:03] LABS: Glucose Point of Care 139 mg/dl (65-105)
--- NOTE | 2024-03-23 16:03 | PHAR ---
HOME MEDS VERIFIED, DUPIXENT 300 MG/2 ML PREFILLED SYRINGE & OZEMPIC 1 MG (4 MG/3 ML) PREFILLED SYRINGE
[2024-03-23 19:51] LABS: Cholesterol 124 mg/dL (0-200); HDL Direct 29 mg/dL; Triglycerides 221 mg/dL (<150)
[2024-03-23 20:03] LABS: LDL Cholesterol Direct 70 mg/dL
[2024-03-23 20:22] LABS: Vitamin D 25 Hydroxy 62.1 ng/mL
[2024-03-23 20:27] LABS: Thyroid Stimulating Hormone 0.813 uIU/mL (0.465-4.680)
[2024-03-23] MEDS: levETIRAcetam 250 MG TABLET 750 MG PO (20:59)
[2024-03-23 21:08] LABS: Glucose Point of Care 119 mg/dl (65-105)
[2024-03-23 21:33] LABS: Folic Acid 16.5 ng/mL (2.76->20)
[2024-03-24] VITALS (12 sets, daily range): BP systolic 103–137; BP diastolic 50–75; PULSE 72–83; RESP 18–22; TEMP 36.3–36.6; O2SAT 93–99
--- NOTE | 2024-03-24 | ECHO_ITS ---
Patient Info Name: Constantino Adam Age: 68 years : 1955 Gender: Male Ht: 69 in Wt: 233 lbs BSA: 2.31 m2 HR: 77 bpm BP: 137 / 75 mmHg Heart Rhythm: Sinus Rhythm Technical Quality: Fair Exam Date: 03/24/2024 9:16 AM Exam Location: Echo Lab Patient Status: Inpatient Admit Date: 03/22/2024 Staff Ordering Physician: Douglas Molina MD Unemployment Specialist: Timothy Lazo RDCS Attending Provider: Mirta Crawford APRN Referring Physician: Tracy LE; Exam Type: CA echo dop bubble study w con Study Info Indications - CVA Complete two-dimentional, color flow and Doppler transthoracic echocardiogram is performed with agitated saline and with contrast to opacify the left ventricle and to improve the delineation of the left ventricle endocardial borders. Contrast/Agitated Saline Contrast/Ag. Saline: Agitated Saline Amount: 18.00 ml Existing IV Access: Yes Contrast/Ag. Saline: Definity Amount: 4.00 ml Existing IV Access: Yes Summary 1. Definity contrast utilized to improve visualization. 2. Concentric left ventricular hypertrophy with well-preserved systolic function and grade 1 diastolic noncompliance. 3. Sclerotic aortic valve with well maintained leaflet separation. 4. Saline contrast injection demonstrates no evidence of shunt. 5. Compared to echocardiogram from 04/07/2023 done for the same indication, the findings are unchanged. Left Ventricle Left ventricular chamber dimension is normal. Left ventricular systolic function is normal, estimated at 65-70%. There is severe concentric increased left ventricular wall thickness. The left ventricular diastolic function is grade I diastolic dysfunction. Right Ventricle Right ventricular chamber dimension is normal. Left Atria Left atrial chamber dimension is mildly enlarged. Right Atria Right atrial chamber dimension is normal. Aortic Valve The aortic valve is trileaflet. There is mild aortic valve sclerosis. Pulmonic Valve The pulmonic valve is not well visualized. Mitral Valve The mitral valve has normal leaflets. The mitral valve annulus is mildly calcified. Tricuspid Valve The tricuspid valve leaflets are normal. Pericardium/Pleural The pericardium appears normal. Aorta The aortic root size at the sinus of Valsalva is normal. Left Ventricular Outflow Tract Name Value Normal LVOT 2D LVOT Diameter 2.0 cm LVOT Doppler LVOT Peak Gradient 5 mmHg LVOT Mean Gradient 3 mmHg LVOT VTI 19 cm LVOT VTI/AV VTI Ratio 0.8 LVOT Stroke Volume 61 ml LVOT CO 5.0 l/min LVOT CI 2.2 l/min/m2 Pulmonic Valve Name Value Normal PV Doppler PV Peak Gradient 5 mmHg Mitral Valve -------
[2024-03-24 05:10] LABS: Hematocrit 40.7 % (42.0-52.0); Hemoglobin 13.3 g/dL (14.0-18.0); Mean Corpuscular HGB Conc 32.7 g/dl (32-36); Mean Corpuscular Volume 91.9 fl (80-100); Mean Platelet Volume 9.8 fl (7.4-10.4); Platelet Count Result 262 k/mm3 (150-375); Red Blood Count 4.43 M/mm3 (4.6-6.20); Red Cell Distribution Width 14.2 % (11.5-14.5); White Blood Count 10.5 K/mm3 (4.5-10.0)
[2024-03-24 05:26] LABS: Alanine Aminotransferase 19 U/L (6-50); Albumin Level 4.1 g/dL (3.5-5.1); Alkaline Phosphatase 75 U/L (38-126); Anion Gap 6 mmol/L (4-12); Aspartate Amino Transferase 25 U/L (17-59); Bilirubin,Total 0.8 mg/dL (0.2-1.3); Blood Urea Nitrogen 28 mg/dL (9-20); Calcium 8.8 mg/dL (8.4-10.2); Carbon Dioxide 32 mmol/L (22-30); Chloride 99 mmol/L (98-107); Estimated CRCL calculation 55 ml/min; Estimated Glomerular Filt Rate 50; Glucose 120 mg/dL (65-110); Sodium 137 mmol/L (137-145)
[2024-03-24 05:41] LABS: Procalcitonin 0.1 ng/mL
[2024-03-24 08:09] LABS: Glucose Point of Care 124 mg/dl (65-105)
[2024-03-24] MEDS: levETIRAcetam 250 MG TABLET 750 MG PO (08:55)
[2024-03-24] MEDS: CLOPIDOGREL BISULFATE 75 MG TABLET PO (08:55)
[2024-03-24] MEDS: ASCORBIC ACID 500 MG TABLET PO (08:55)
[2024-03-24] MEDS: ASPIRIN 325 MG TABLET PO (08:55)
[2024-03-24] MEDS: CHOLECALCIFEROL 1,000 UNITS TABLET 2000 UNITS PO (08:55)
[2024-03-24] MEDS: POTASSIUM CHLORIDE 20 MEQ PACKET (FOR LIQUID) 40 MEQ PO (08:55)
[2024-03-24] MEDS: ESCITALOPRAM OXALATE 10 MG TABLET 20 MG PO (08:55)
[2024-03-24] MEDS: PERFLUTREN LIPID MICROSPHERES 1.5 ML VIAL DILUTED TO 10 ML TOTAL VOLUME IV PUSH (10:11)
--- NOTE | 2024-03-24 10:11 | IVDEFINITY ---
Prior to administration of IV Definity the patient was educated on the risks and benefits of the imaging enhancing agent including potential adverse side effects. The patient verbalized understanding. Allergies were verified. No exclusion criteria were identified and at least one of the following inclusion criteria were met: 1) physician request, 2) patient technically difficult to image (per the [place] [employer] guidelines of two or more segments not discernable within the apical view), or 3) questionable left ventricular function. ?
[2024-03-24 11:54] LABS: Glucose Point of Care 193 mg/dl (65-105)
--- NOTE | 2024-03-24 13:12 | PM.DS ---
DS: Admitting Diagnosis Discharge Date 03/24/2024 Admitting Diagnosis Syncope/orthostatic hypotension DS: Discharge Diagnosis Discharge Diagnosis (1) Syncope: Code(s): R55 - Syncope and collapse Status: Acute (2) Acute hypokalemia: Code(s): E87.6 - Hypokalemia Status: Acute (3) Engages in vaping: Code(s): Z72.89 - Other problems related to lifestyle Status: Acute Plan This is a 68-year-old male with PMH obesity, heart failure preserved ejection fraction, CKD, history of CVA with residual vision deficit, [id number]-ztegqyoyc diabetes mellitus, remote smoker now vaping, who has been having syncope for few weeks. He lives at home with his and she reports she has a blank stare rate before happens. Patient himself reports he can feel it coming on and everything becomes agree and then he faints. Sometimes he is able to catch himself. No seizure activity. Very brief loss of consciousness and no postictal state. [facility] evaluation demonstrates a CT head without acute intracranial findings, chest x-ray unremarkable for acute process, WBC 10.3, potassium 2.7, blood sugar 152, serum creatinine 1.3. Administer potassium 100 mEq ---- Admit to medical floor with telemetry. Syncope could be cardiac related given his very low potassium on admission. It has been replaced and has come up to 3.2. Give another 40 mEq and recheck again. Patient does not appear septic. His syncope may be related to seizures. Neurology consultation requested. SCDs. Full code. DS: Summary Hospital Course Reason for hospitalization: Syncope/orthostatic hypotension Hospital Course: ADMISSION: MEDICAL CHART This is a 68-year-old male with PMH obesity, heart failure preserved ejection fraction, CKD, history of CVA with residual vision deficit, [id number] diabetes mellitus, remote smoker now vaping, who has been having syncope for few weeks. He lives at home with his and she reports she has a blank stare rate before happens. Patient himself reports he can feel it coming on and everything becomes agree and then he faints. Sometimes he is able to catch himself. No seizure activity. Very brief loss of consciousness and no postictal state. 03/23/2024: Assumed care atient did have a greater then 30 point drop in his orthostatic BP this am. Patient to be seen by neurology, HX of previous infarcts of the occipital lobes. Echo pending, cortisol level in the am to evaluate possible cause continue to hold metolazone and BB. Potassium 3.1 replenished follow-up labs in the am. PER NEUROLOGY: Clinically the differential diagnosis included partial complex seizures versus cardiac arrhythmias of some sort. An EEG was recommended. CT scan did not show any new abnormality. CT angiogram also did not show any large vessel occlusion. Neurology started him on Keppra 750 mg twice a day until further testing complete. A prolonged cardiac monitoring should be considered. Echocardiogram is also recommended. We checked lipid profile serum B12 folic acid level and thyroid function test vitamin-D level. Like to see him for follow-up in my office in 3 months time. Patient did have a greater then 30 point drop in his orthostatic BP this am. Patient to be seen by neurology, HX of previous infarcts of the occipital lobes. Echo pending, cortisol level in the am to evaluate possible cause continue to hold metolazone and BB. Potassium 3.1 replenished follow-up labs in the am. 03/24/2024: DISCHARGED Patient with no further episodes while inpatient discontinued his Jardiance and metolazone due to orthostatic hypotension can follow-up with PCP. BP did improve during staying from systolic 30 point drop to systolic 17 point drop also recommended compression stockings. Echocardiogram no change from previous with Grade I diastolic and LVEF of 65-70% with no shunting. No EEG available until 03/28/2024 so schedule
[2024-03-27 04:14] LABS: Methylmalonic Acid 159 nmol/L (69-390)
== END 2024-03-24 15:12 | disposition home or self-care (01) ==
LOC: ANHED 18:17 → ANHIMU 18:30
PROVIDERS: General Practice; Nurse Practitioner Family; Psychiatry & Neurology Neurology; Admitting Provider Family Medicine; Emergency Provider Emergency Medicine; PCP Internal Medicine; Visit Provider Nurse Practitioner Family
DX: G40.209 Localization-related (focal) (partial) symptomatic epilepsy and epileptic syndromes with complex partial seizures, not intractable, without status epilepticus (principal); R55 Syncope and collapse; E87.6 Hypokalemia; E11.8 Type 2 diabetes mellitus with unspecified complications; I44.0 Atrioventricular block, first degree; I11.0 Hypertensive heart disease with heart failure; I50.9 Heart failure, unspecified; E78.5 Hyperlipidemia, unspecified; I69.312 Visuospatial deficit and spatial neglect following cerebral infarction; F32.A Depression, unspecified; F17.290 Nicotine dependence, other tobacco product, uncomplicated; Z79.620 Long term (current) use of immunosuppressive biologic; Z79.84 Long term (current) use of oral hypoglycemic drugs; Z79.85 Long-term (current) use of injectable non-insulin antidiabetic drugs; Z79.02 Long term (current) use of antithrombotics/antiplatelets; E66.9 Obesity, unspecified; Z68.34 Body mass index [BMI] 34.0-34.9, adult
CPT/HCPCS: 36415; 70450; 70496; 70498; 71046; 80048; 80053; 80061; 81001; 82306; 82533; 82607; 82746; 82948; 83605; 83735; 83880; 83921; 84145; 84443; 84484; 85025; 85027; 93005; 96365; 96375; 99285; A9270; C8929; G0378; J3480; Q9957; Q9967